=== PATIENT | male | born 1960 | race African-American/Black ===

== ENCOUNTER 2017-04-18 06:14 | Emergency (ER) | payer OTHER ==
[~2017-04-18] VITALS: Ht 170.2 cm; Wt 72.6 kg
[2017-04-18 06:23] VITALS: BP 166/80
[2017-04-18] MEDS ORDERED: HYDR-971 PO (06:45)
--- NOTE | 2017-04-18 06:46 | PHYS DOC ---
Past Medical History Past Medical History: GERD, Hypertension Past Surgical History: No Surgical History Alcohol Use: None Drug Use: None Adult General Chief Complaint Chief Complaint: LOWER EXT PAIN [facility] HPI Patient is a 56 year old male presenting to the emergency department for evaluation of left hip, lumbar back, and leg pain that has been going on for months however it is worse over the past several days. He says it feels like a toothache that it is intense pounding. He says he doesn't feel any pain at rest however whenever he twists his torso or moves he feels the pain more intense. 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 He denies any weakness numbness tingling dysuria hematuria bowel or bladder incontinence. Patient says that he has seen his primary care for this and was taking anti-inflammatories with some relief. He has had no physical therapy or advanced imaging. Review of Systems Review of Systems Constitutional: Denies fever or chills [] Cardiovascular: No additional information not addressed in HPI [] GI: Denies abdominal pain, nausea, vomiting, bloody stools or diarrhea [] : Denies dysuria or hematuria [] Musculoskeletal: + back pain and L hip joint pain [] Integument: Denies rash or skin lesions [] Neurologic: Denies headache, focal weakness or sensory changes [] Current Medications Current Medications Current Medications Medications (Trade) Dose Ordered Sig/[facility] Start Time Stop Time Status Last Admin Dose Admin Ketorolac Tromethamine (Toradol Im) 60 mg 1X ONCE 04/18/17 07:00 04/18/17 07:01 Allergies Allergies Allergies Coded Allergies Type Severity Reaction Last Updated Verified aspirin Allergy Mild raises blood pressure. 01/28/14 Yes Physical Exam Physical Exam Constitutional: Well developed, well nourished, no acute distress, non-toxic appearance. [] Cardiovascular:Heart rate regular rhythm, no murmur [] Lungs & Thorax: Bilateral breath sounds clear to auscultation [] Abdomen: Bowel sounds normal, soft, no tenderness, no masses, no pulsatile masses. [] Back: + L lower lumbar tenderness to palpation. No midline ttp. Extremities: Left lateral hip tenderness to palpation and pain seems to continue along his left upper leg in the L1 distribution area. Neurologic: Alert and oriented X 3, normal motor function, normal sensory function, no focal deficits noted. Up walking in the emergency department with normal gait. Current Patient Data Vital Signs Vital Signs Date Time Temp Pulse Resp B/P (MAP) Pulse Ox O2 Delivery O2 Flow Rate FiO2 04/18/17 06:23 97.8 62 14 97 Room Air 97.8 EKG EKG [] Radiology/Procedures Radiology/Procedures Lumbar x-ray shows no acute fracture dislocation soft tissue abnormality Left hip x-ray shows no fracture dislocation or soft tissue abnormality Course & Med Decision Making Course & Med Decision Making X-rays show no acute pathology so he will be treated with rice NSAIDs [place] for breakthrough pain and PCP follow-up for physical therapy and further evaluation and treatment. Patient aware and agreeable with plan for discharge and verbalized understanding of the need for short-term follow-up and strict ER return precautions discussed including worsening pain weakness or incontinence or other general concerns. Dragon Disclaimer Dragon Disclaimer This electronic medical record was generated, in whole or in part, using a voice recognition dictation system. Departure Departure Impression: Primary Impression: Lumbar pain Additional Impression: Lumbar radiculopathy, acute Disposition: 01 HOME, SELF-CARE Condition: GOOD Referrals: MIKKI LAWS MD (PCP) Patient Instructions: Lumbosacral Radiculopathy Additional Instructions: TAKE 400MG OF IBUPROFEN EVERY 6 HOURS AND THE NORCO FOR BREAKTHROUGH PAIN. DO NOT TAKE MORE THAN 3250MG OF TYLENOL IN A 24 HOUR PERIOD. REST YOU LEG PUT ICE ON IT IT, ELEVATE IT. FOLLOW WITH YOUR PRIMARY CARE PROVIDER LATER THIS WEEK AND COME BACK TO THE ED SOONER WITH ANY NEW OR WORSENING SYMPTOMS. THANK YOU! Scripts Hydrocodone/Apap 5-325 (NORCO 5-325 TABLET) 1 Each Tablet 1 TAB PO PRN Q6HRS Y for PAIN, #14 TAB 0 Refills Prov: JULISA SINGLETARY DO 04/18/17 Problem Qualifiers Primary Impression: Lumbar pain Chronicity: acute Back pain laterality: left Sciatica presence: unspecified whether sciatica present Qualified Codes: M54.5 - Low back pain JULISA SINGLETARY DO April 18, 2017 06:46
[2017-04-18] MEDS ORDERED: KETOROLAC TROMETHAMINE 60 MG/2 ML INJ. IM ONE (07:00)
--- NOTE | 2017-04-18 07:38 | RAD ---
EXAM: Pelvis and left hip, 3 views. HISTORY: Pain. COMPARISON: None. FINDINGS: A frontal view of the pelvis and frontal and frog-leg views of the left hip are obtained. There is no fracture, dislocation or subluxation. IMPRESSION: No acute osseous finding.
--- NOTE | 2017-04-18 07:38 | RAD ---
EXAM: Lumbar spine, 3 views. HISTORY: Pain. COMPARISON: None. FINDINGS: Frontal, lateral and coned sacral views of the lumbar spine are obtained. There is minimal retrolisthesis of L5 on S1. There is disc space narrowing at this level. There is endplate remodeling anteriorly redundantly at L1-L2 and L3-L4. There is no fracture. IMPRESSION: 1. Mild multilevel degenerative change. 2. No acute osseous finding.
== END 2017-04-18 07:03 | disposition home or self-care (01) ==
LOC: ER 06:14
DX: M54.16 Radiculopathy, lumbar region (principal); M25.552 Pain in left hip; K21.9 Gastro-esophageal reflux disease without esophagitis; I10 Essential (primary) hypertension; Z88.6 Allergy status to analgesic agent
CPT/HCPCS: 72100; 73502; 99284

== ENCOUNTER 2017-07-17 05:11 | Emergency (ER) | payer OTHER ==
[~2017-07-17] VITALS: Ht 170.2 cm; Wt 71.2 kg
[2017-07-17 05:11] VITALS: BP 176/89
[~2017-07-17 05:11] MED LIST: HYDR-971 PO
[2017-07-17] MEDS ORDERED: IBUPROFEN 800 MG TABLET. PO ONE (05:45)
[2017-07-17] MEDS ORDERED: HYDR-971 PO (05:46)
--- NOTE | 2017-07-17 05:46 | PHYS DOC ---
Past Medical History Past Medical History: GERD, Hypertension Past Surgical History: No Surgical History Alcohol Use: None Drug Use: None Adult General Chief Complaint Chief Complaint: MULTIPLE COMPLAINTS [facility] HPI Patient is a 56 year old male presenting to the emergency department for evaluation of a primary complaint of left leg pain and intermittent tingling has been going on for 2 months. He says that he was getting physical therapy for this but that he is not receiving it anymore and now his left leg is starting to hurt him again. Patient says that he is not taking anything for pain as he was taking hydrocodone but he has ran out. Patient denies any weakness or numbness rather he says he feels a sharp pain on the front of his left leg that radiates from his low back and that every once a while he gets tingling on the front of his leg as well. His any bowel or bladder incontinence and no saddle anesthesia and he is walking with a normal gait. He thinks that he is having a stroke but he denies any difficulty ambulating speaking or unilateral weakness or numbness. Again this has been going on for 2 months. Review of Systems Review of Systems Constitutional: Denies fever or chills [] Eyes: Denies change in visual acuity, redness, or eye pain [] Cardiovascular: No additional information not addressed in HPI [] GI: Denies abdominal pain, nausea, vomiting, bloody stools or diarrhea [] Musculoskeletal: + back pain. No joint pain [] Neurologic: Denies headache, focal weakness. + tingling sensory changes [] Current Medications Current Medications Current Medications Medications (Trade) Dose Ordered Sig/[facility] Start Time Stop Time Status Last Admin Dose Admin Ibuprofen (Motrin) 800 mg 1X ONCE 07/17/17 05:45 07/17/17 05:46 Allergies Allergies Allergies Coded Allergies Type Severity Reaction Last Updated Verified aspirin Allergy Mild raises blood pressure. 01/28/14 Yes Physical Exam Physical Exam Constitutional: Well developed, well nourished, no acute distress, non-toxic appearance. [] Cardiovascular:Heart rate regular rhythm, no murmur [] Lungs & Thorax: Bilateral breath sounds clear to auscultation [] Abdomen: Bowel sounds normal, soft, no tenderness, no masses, no pulsatile masses. [] Skin: Warm, dry, no erythema, no rash. [] Back: No tenderness, no CVA tenderness. [] Extremities: No tenderness, no cyanosis, no clubbing, ROM intact, no edema. [] Neurologic: Alert and oriented X 3, normal motor function, normal sensory function, no focal deficits noted. Cranial nerves II through XII intact and he has normal gait with 5 out of 5 strength in all extremities with normal finger to nose and heel to dill and he can stand on one leg with no difficulty. Current Patient Data Vital Signs Vital Signs Date Time Temp Pulse Resp B/P (MAP) Pulse Ox O2 Delivery O2 Flow Rate FiO2 07/17/17 05:11 97.8 98 14 176/89 (118) 98 Room Air 97.8 EKG EKG [] Radiology/Procedures Radiology/Procedures [] Course & Med Decision Making Course & Med Decision Making Patient with symptoms most consistent with a lumbar radiculopathy. I do not suspect stroke. I told him if he is having unilateral weakness numbness or other specific neurologic symptoms is possible but given this is just low back pain radiating to the front of his leg this is likely a lumbar radiculopathy. Especially since this has been going on for 2 months this is more of a chronic complaint they could be followed up as an outpatient. If he has any new complaints that we could assess him for stroke but for now we'll treat him with NSAIDs and [place] for breakthrough pain. Patient aware and agreeable with plan for discharge and verbalized understanding of the need for short-term PCP follow -up in the strict ER return precautions discussed worsening pain weakness or other general concerns. Dragon Disclaimer Dragon Disclaimer This electronic medical record was generated, in whole or in part, using a voice recognition dictation system. Departure Departure Impression: Primary Impression: Lumbar radiculopathy, acute Disposition: 01 HOME, SELF-CARE Condition: GOOD Referrals: MIKKI LAWS MD (PCP) Patient Instructions: Lumbosacral Radiculopathy Additional Instructions: TAKE 400MG OF IBUPROFEN EVERY 6 HOURS AND THE NORCO FOR BREAKTHROUGH PAIN. FOLLOW WITH YOUR PCP LATER NEXT WEEK TO ENSURE IMPROVEMENT. THANK YOU! Scripts Hydrocodone/Apap 5-325 (NORCO 5-325 TABLET) 1 Each Tablet 1 TAB PO PRN Q6HRS Y for PAIN, #14 TAB 0 Refills Prov: JULISA SINGLETARY DO 07/17/17 JULISA SINGLETARY DO Jul 17, 2017 05:46
== END 2017-07-17 06:02 | disposition home or self-care (01) ==
LOC: ER 05:11
DX: M54.16 Radiculopathy, lumbar region (principal); K21.9 Gastro-esophageal reflux disease without esophagitis; I10 Essential (primary) hypertension; Z88.6 Allergy status to analgesic agent
CPT/HCPCS: 99283

== ENCOUNTER 2017-12-21 23:31 | Emergency (ER) | payer OTHER | END 2017-12-22 00:30 | disposition home or self-care (01) | LOC: ER 23:31 | DX: M79.604 Pain in right leg (principal); G89.29 Other chronic pain; Z76.0 Encounter for issue of repeat prescription; I10 Essential (primary) hypertension; K21.9 Gastro-esophageal reflux disease without esophagitis; Z88.6 Allergy status to analgesic agent | CPT/HCPCS: 99283 ==

== ENCOUNTER → 2018-03-21 | Outpatient (CLI) | payer OTHER ==
[~2018-03-21] MED LIST changes: +CONTRAST GIVEN MC; -HYDR-971 PO
[2018-03-21] MEDS: IOHEXOL 300 MG/ML 100ML VIAL. IV (08:19)
== END | disposition home or self-care (01) ==
LOC: CT 07:26
DX: I70.223 Atherosclerosis of native arteries of extremities with rest pain, bilateral legs (principal)
CPT/HCPCS: 75635; Q9967

== ENCOUNTER 2018-11-19 18:34 | Emergency (ER) | payer OTHER ==
[~2018-11-19] VITALS: Ht 170.2 cm; Wt 69.4 kg
[~2018-11-19 18:34] MED LIST changes: -CONTRAST GIVEN MC; +CYCL10TA2 PO; +HYDR-3164 PO; +METO-269 PO; +NAPR-683 PO
[2018-11-19 18:48] VITALS: BP 198/94
[2018-11-19] MEDS ORDERED: AMOX1TAB61 PO (19:19)
[2018-11-19] MEDS ORDERED: FLUT9.9S NS (19:19)
--- NOTE | 2018-11-19 19:19 | PHYS DOC ---
Past Medical History Past Medical History: GERD, Hypertension Additional Past Medical Histor: POOR CIRCULATION Past Surgical History: No Surgical History Alcohol Use: None Drug Use: None Adult General Chief Complaint Chief Complaint: Congestion HPI HPI Patient is a 57 year old male with history of hypertension, acid reflex, who presents today complaining of nasal congestion for 2 weeks. Patient states symptoms began with a cough but the cough has cleared out, he states he is stuck with nasal congestion, he states he has been using [id number] Coricidin BP with no relief. Denies any fever. Denies any history of smoking. Review of Systems Review of Systems Constitutional: Denies fever or chills [] Eyes: Denies change in visual acuity, redness, or eye pain [] HENT: Reports nasal congestion. Denies sore throat [] Respiratory: Reports cough, denies shortness of breath [] Cardiovascular: No additional information not addressed in HPI [] GI: Denies abdominal pain, nausea, vomiting, bloody stools or diarrhea [] : Denies dysuria or hematuria [] Musculoskeletal: Denies back pain or joint pain [] Integument: Denies rash or skin lesions [] Neurologic: Denies headache, focal weakness or sensory changes [] All other systems were reviewed and found to be within normal limits, except as documented in this note. Allergies Allergies Allergies Coded Allergies Type Severity Reaction Last Updated Verified aspirin Adverse Reaction Mild raises blood pressure. 03/21/18 Yes Physical Exam Physical Exam Constitutional: Well developed, well nourished, no acute distress, non-toxic appearance. [] HENT: Normocephalic, atraumatic, bilateral external ears normal, oropharynx moist, no oral exudates, patient sounds congested nasally, bilateral nasal turbinates are boggy. Mild maxillary sinus tenderness bilaterally Eyes: PERRLA, EOMI, conjunctiva normal, no discharge. [] Neck: Normal range of motion, no tenderness, supple, no stridor. [] Cardiovascular:Heart rate regular rhythm, no murmur [] Lungs & Thorax: Bilateral breath sounds clear to auscultation [] Abdomen: Bowel sounds normal, soft, no tenderness, no masses, no pulsatile masses. [] Skin: Warm, dry, no erythema, no rash. [] Back: No tenderness, no CVA tenderness. [] Extremities: No tenderness, no cyanosis, no clubbing, ROM intact, no edema. [] Neurologic: Alert and oriented X 3, normal motor function, normal sensory function, no focal deficits noted. [] Psychologic: Affect normal, judgement normal, mood normal. [] Current Patient Data Vital Signs Vital Signs Date Time Temp Pulse Resp B/P (MAP) Pulse Ox O2 Delivery O2 Flow Rate FiO2 11/19/18 18:48 98.0 65 18 198/94 (128) 97 Room Air 98.0 EKG EKG [] Radiology/Procedures Radiology/Procedures [] Course & Med Decision Making Course & Med Decision Making Pertinent Labs and Imaging studies reviewed. (See chart for details) This is a 57-year-old male patient presented to the ED today with acute sinusitis. Will be discharged with Augmentin and Flonase. Follow-up with his own PCP in the next 1-2 weeks. Blood pressure was in the 190s over 90s, patient has history of hypertension, due for his evening BP medications, encouraged to make sure he takes the medications. Patient denies any headache or chest pain. He has good follow-up. Dragon Disclaimer Dragon Disclaimer This electronic medical record was generated, in whole or in part, using a voice recognition dictation system. Departure Departure Impression: Primary Impression: Acute sinusitis Additional Impression: Hypertension Disposition: 01 HOME, SELF-CARE Condition: STABLE Referrals: Raman COOPER MD (PCP) Follow-up in 1-2 weeks Patient Instructions: Hypertension, Sinusitis Additional Instructions: You were evaluated for acute sinusitis, use the prescribed medications as ordered. Ensure you are taking your blood pressure medications as ordered by your doctor. Come back to the ED at any point symptoms worsen. Scripts Fluticasone Propionate (Flonase Allergy Relief) 9.9 Ml [place].susp 2 SPRAYS NS DAILY, #1 BOTTLE Prov: YEVGENIY ROMANO APRN 11/19/18 Amoxicillin/Potassium Clav (AUGMENTIN 875-125 TABLET) 1 Each Tablet 1 TAB PO BID, #20 TAB Prov: YEVGENIY ROMANO APRN 11/19/18 Problem Qualifiers Primary Impression: Acute sinusitis Sinusitis location: maxillary Recurrence: non-recurrent Qualified Codes: J01.00 - Acute maxillary sinusitis, unspecified Additional Impression: Hypertension Hypertension type: unspecified Qualified Codes: I10 - Essential (primary) hypertension YEVGENIY ROMANO APRN Nov 19, 2018 19:19
== END 2018-11-19 19:26 | disposition home or self-care (01) ==
LOC: ER 18:34
DX: J01.00 Acute maxillary sinusitis, unspecified (principal); I10 Essential (primary) hypertension; R51 Headache; K21.9 Gastro-esophageal reflux disease without esophagitis; Z88.6 Allergy status to analgesic agent
CPT/HCPCS: 99283

== ENCOUNTER 2019-03-15 13:08 | Emergency (ER) | payer OTHER ==
[~2019-03-15] VITALS: Ht 170.2 cm; Wt 68.9 kg
[~2019-03-15 13:08] MED LIST changes: +AMOX1TAB61 PO; +FLUT9.9S NS
[2019-03-15 13:35] VITALS: BP 115/69
--- NOTE | 2019-03-15 14:03 | RAD ---
Indications: Patient states his right hand and right wrist got caught in a roll up door at work. Right hand and right wrist pain. Three-view right hand study: No acute fracture or dislocation or lytic process is evident. An old healed fracture of the distal aspect of the fifth proximal phalanx is seen. Three-view right wrist study: There is a nondisplaced nonangulated comminuted fracture of the distal shaft of the right radius. No lytic process is evident. Scaphoid bone is intact. Alignment is normal. IMPRESSION: Posttraumatic nondisplaced comminuted fracture of the distal shaft of the right radius. Electronically signed by: Torey Avery MD (03/15/2019 2:01 PM) [id number]
[2019-03-15] MEDS ORDERED: ACETAMINOPHEN 325 MG TABLET. PO ONE (14:15)
--- NOTE | 2019-03-15 14:40 | RAD ---
3 view study of the right elbow Clinical indications: Right elbow pain after trauma. FINDINGS: No joint effusion is seen. No acute fracture or dislocation or lytic process is evident. IMPRESSION: No acute osseous abnormality. Electronically signed by: Torey Avery MD (03/15/2019 2:37 PM) [place] [id number]
--- NOTE | 2019-03-15 15:51 | PHYS DOC ---
Past Medical History Past Medical History: GERD, Hypertension Additional Past Medical Histor: POOR CIRCULATION Past Surgical History: No Surgical History Alcohol Use: None Drug Use: None Adult General Chief Complaint Chief Complaint: WRIST PAIN HPI HPI 58-year-old male presents to ER via POV with complaints of right upper extremity injury. He reports he was at work and someone had opened the freezer door he had a mild of which caused his right arm to be jerked upwards. Patient states he has right wrist and hand pain. He denies any [id number] medications prior to arrival to ER. He reports incident occurred earlier this morning and and he has been using his right upper extremity however does have pain with movements. Patient denies any other injury. Pt reports he is right hand dominant. Review of Systems Review of Systems Respiratory: Denies cough or shortness of breath [] Cardiovascular: Denies CP GI: Denies nausea, vomiting Musculoskeletal: Denies back/neck pain. Reports rt wrist/hand pain Integument: Denies bruising/swelling/wounds Neurologic: Denies focal weakness or sensory changes. Denies numbness/tingling All other systems were reviewed and found to be within normal limits, except as documented in this note. Current Medications Current Medications Current Medications Medications (Trade) Dose Ordered Sig/[facility] Start Time Stop Time Status Last Admin Dose Admin Acetaminophen (Tylenol) 650 mg 1X ONCE 03/15/19 14:15 03/15/19 14:18 DC 03/15/19 14:19 650 MG Allergies Allergies Allergies Coded Allergies Type Severity Reaction Last Updated Verified aspirin Adverse Reaction Mild raises blood pressure. 03/21/18 Yes Physical Exam Physical Exam Constitutional: Well developed, well nourished, no acute distress, non-toxic ap pearance. [] HENT: Normocephalic, atraumatic, oropharynx moist, nose normal. [] Eyes: Pupils equal, conjunctiva normal, no discharge. [] Neck: Normal range of motion, no tenderness, supple, no stridor. [] Cardiovascular:Heart rate regular rhythm, no murmur [] Lungs & Thorax: Bilateral breath sounds clear to auscultation- resp. equal/nonlabored Abdomen: Bowel sounds normal, soft, no tenderness Skin: Warm, dry Back: No tenderness, full ROM Extremities: No cyanosis, no clubbing, ROM intact, no edema. 2+ bilat. radial. Rt shoulder nontender. ROM intact. Rt posterior elbow tender on palp. no swelling/ecchymosis/wounds. No palp. deformity. ROM intact. Rt anterior mid shaft forearm into rt wrist tender on palp. no ecchymosis/swelling/deformity. Tender on palp. rt anterior wrist/dorsal surface of hand- no deformity/swelling/ecchymosis. 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 Cap refill brisk rt hand. Neurologic: Alert and oriented X 3, normal motor function, normal sensory function, no focal deficits noted. [] Psychologic: Affect normal, judgement normal, mood normal. [] Current Patient Data Vital Signs Vital Signs Date Time Temp Pulse Resp B/P (MAP) Pulse Ox O2 Delivery O2 Flow Rate FiO2 03/15/19 13:35 98.2 56 18 115/69 (84) 97 Room Air 98.2 EKG EKG [] Radiology/Procedures Radiology/Procedures PROCEDURE: HAND RIGHT 3V Indications: Patient states his right hand and right wrist got caught in a roll up door at work. Right hand and right wrist pain. Three-view right hand study: No acute fracture or dislocation or lytic process is evident. An old healed fracture of the distal aspect of the fifth proximal phalanx is seen. Three-view right wrist study: There is a nondisplaced nonangulated comminuted fracture of the distal shaft of the right radius. No lytic process is evident. Scaphoid bone is intact. Alignment is normal. IMPRESSION: Posttraumatic nondisplaced comminuted fracture of the distal shaft of the right radius. Electronically signed by: Taylor Avery MD (03/15/2019 2:01 PM) [place] [id number] DICTATED and SIGNED BY: TAYLOR AVERY MD DATE: 03/15/19 1823 PROCEDURE: ELBOW RIGHT 3V 3 view study of the right elbow Clinical indications: Right elbow pain after trauma. FINDINGS: No joint effusion is seen. No acute fracture or dislocation or lytic process is evident. IMPRESSION: No acute osseous abnormality. Electronically signed by: Taylor Avery MD (03/15/2019 2:37 PM) [place] [id number] DICTATED and SIGNED BY: TAYLOR AVERY MD DATE: 03/15/19 2631 Course & Med Decision Making Course & Med Decision Making Pertinent Imaging studies reviewed. (See chart for details) Pt was evaluated in the ER after a right upper extremity injury at work today. Pt had xrays obtained of rt hand/wrist and elbow- report of distal nondisplaced comminuted radius fx on xrays were discussed with pt. Pt was provided with dose of tylenol in ER as he preferred no Ibuprofen. Pt remained PMS in rt upper extremity. Pt will be placed in rt arm sugar tong splint with sling application- which was discussed with pt. Pt denied any other injury. Education provided on follow-up with orthopedics for reevaluation and further care. With patient being injured at work advised on discussion with his employer as to if he should follow-up with work comp orthopedic doctor. Will provide orthopedic referral information on discharge paperwork also. Pt advised on use of Tylenol and/or ibuprofen. Prescription for pain medication was offered however patient is not wanting anything stronger than Tylenol. Provided on signs and symptoms to return to ER for an discharge paperwork was discussed. Following splint application and patient remained PMS intact in right upper extremity and was in no visible distress at time of discharge. Dragon Disclaimer Dragon Disclaimer This electronic medical record was generated, in whole or in part, using a voice recognition dictation system. Departure Departure Impression: Primary Impression: Distal radius fracture, right Disposition: 01 HOME, SELF-CARE Condition: STABLE Referrals: Raman COOPER MD (PCP) KELLI PETERSON MD Patient Instructions: Arm Sling Use, [id number], Radial Fracture Additional Instructions: You will need follow-up with orthopedic doctor as soon as possible for reevaluation and further care. Talk with your employer to see if you need evaluated by a workman comp physician- if not and orthopedic doctor referral information is being provided on your discharge paperwork for option for further care. Wear sling for support of the splint. Tylenol and/or ibuprofen as needed for pain relief as directed on container. JACKSON NEUMANN APRN Mar 15, 2019 15:51
== END 2019-03-15 15:55 | disposition home or self-care (01) ==
LOC: ER 13:08
DX: S52.591A Other fractures of lower end of right radius, initial encounter for closed fracture (principal); K21.9 Gastro-esophageal reflux disease without esophagitis; I10 Essential (primary) hypertension; Z88.6 Allergy status to analgesic agent; W22.8XXA Striking against or struck by other objects, initial encounter; Y93.89 Activity, other specified; Y92.89 Other specified places as the place of occurrence of the external cause; Y99.0 Civilian activity done for income or pay
CPT/HCPCS: 29125; 73080; 73110; 73130; 99284-25

== ENCOUNTER → 2019-12-27 | Day surgery (SDC) | payer BC ==
[~2019-12-27] MED LIST changes: +AMLO10TA8 PO; +CILO100T PO; +HYDROmorphone 2 MG/ML VIAL IV PRN; +IV RINGERS,LACTATED 1000ML 1,000 ML IV SCH; +LIDOCAINE 1% PF 2 ML VIAL. ID PRN; +LIDOCAINE 2% PF 5 ML VIAL. ONE; +LOSA100T14 PO; +MORPHINE SULFATE 2 MG/ML VIAL. IV PRN; +ONDANSETRON PF 4 MG/2 ML VIAL. IV PRN; +PROCHLORPERAZINE 10 MG/2 ML VIAL. IV PRN; +PROPOFOL 40 ML IV ONE; +fentaNYL PF VIAL 100 MCG/2 ML VIAL IV PRN
[2019-12-27 07:50] VITALS: BP 115/68
== END | disposition home or self-care (01) ==
LOC: ENDOS 06:19
PROVIDERS: ATTEND Internal Medicine Gastroenterology
DX: Z12.11 Encounter for screening for malignant neoplasm of colon (principal); K64.0 First degree hemorrhoids; K63.89 Other specified diseases of intestine; K22.2 Esophageal obstruction; I10 Essential (primary) hypertension; Z82.49 Family history of ischemic heart disease and other diseases of the circulatory system; Z80.0 Family history of malignant neoplasm of digestive organs; Z88.6 Allergy status to analgesic agent; Z79.899 Other long term (current) drug therapy
CPT/HCPCS: 43450; 45378; J2001; J2704

== ENCOUNTER 2020-01-22 07:59 | Inpatient (IN) | payer BC ==
[~2020-01-22] VITALS: Ht 170.2 cm; Wt 66.8 kg
[2020-01-22] VITALS (8 sets, daily range): BP systolic 137–164; BP diastolic 73–90
[~2020-01-22 07:59] MED LIST changes: -HYDROmorphone 2 MG/ML VIAL IV PRN; -IV RINGERS,LACTATED 1000ML 1,000 ML IV SCH; -LIDOCAINE 1% PF 2 ML VIAL. ID PRN; -LIDOCAINE 2% PF 5 ML VIAL. ONE; -MORPHINE SULFATE 2 MG/ML VIAL. IV PRN; -ONDANSETRON PF 4 MG/2 ML VIAL. IV PRN; -PROCHLORPERAZINE 10 MG/2 ML VIAL. IV PRN; -PROPOFOL 40 ML IV ONE; -fentaNYL PF VIAL 100 MCG/2 ML VIAL IV PRN
[2020-01-22] MEDS ORDERED: IV NORMAL SALINE 1000ML BAG 1,000 ML IV SCH (08:22)
[2020-01-22] MEDS ORDERED: ASPIRIN CHEWABLE 81 MG TABLET. PO ONE (08:30)
--- NOTE | 2020-01-22 08:35 | PHYS DOC ---
Past Medical History Past Medical History: GERD, Hypertension Additional Past Medical Histor: POOR CIRCULATION Past Surgical History: No Surgical History Smoking Status: Never Smoker Alcohol Use: None Drug Use: None Adult General Chief Complaint Chief Complaint: SYNCOPE HPI HPI Patient is a 59-year-old male who presents to the emergency department for evaluation. He states he awakened this morning, and felt lightheaded, and then had a syncopal episode while using the bathroom. He denies any pain, including any chest pain. He has not had any nausea, vomiting, or diarrhea. He denies any injuries during his syncopal episode, denies any headache, neck pain, abdominal pain, or back pain. He denies any extremity pain or any injuries. There are no alleviating or exacerbating factors to his symptoms Review of Systems Review of Systems Constitutional: Denies fever or chills [] Eyes: Denies change in visual acuity, redness, or eye pain [] HENT: Denies nasal congestion or sore throat [] Respiratory: Denies cough or shortness of breath [] Cardiovascular:The patient denies any shortness of breath, chest pain, palpitations, or orthopnea [] GI: Denies abdominal pain, nausea, vomiting, bloody stools or diarrhea [] : Denies dysuria or hematuria [] Musculoskeletal: Denies back pain or joint pain [] Integument: Denies rash or skin lesions [] Neurologic: Denies headache, focal weakness or sensory changes [] Endocrine: Denies polyuria or polydipsia [] All other systems were reviewed and found to be within normal limits, except as documented in this note. Current Medications Current Medications Current Medications Medications (Trade) Dose Ordered Sig/Dayne Start Time Stop Time Status Last Admin Dose Admin Aspirin (Children'S Aspirin) 324 mg 1X ONCE 01/22/20 08:30 01/22/20 08:36 DC 01/22/20 08:43 324 MG Sodium Chloride 1,000 ml @ 1,000 mls/hr Q1H 01/22/20 08:22 01/22/20 09:21 DC 01/22/20 08:44 1,000 MLS/HR Allergies Allergies Allergies Coded Allergies Type Severity Reaction Last Updated Verified aspirin Adverse Reaction Mild raises blood pressure. 12/27/19 Yes Physical Exam Physical Exam PHYSICAL EXAM: CONSTITUTIONAL: Well developed, well nourished HEAD: normocephalic, atraumatic EENT: PERRL, EOMI. Conjunctivae normal color, sclerae non-icteric; moist mucous membranes. NECK: Supple, non-tender; no meningismus. LUNGS: Lungs CTA, breathing even and unlabored. Normal air movement. HEART: Regular rate and rhythm, no murmur CHEST: No deformity; non-tender ABDOMEN: The abdomen is soft, and non-tender, no masses or bruits. EXTREM: Normal ROM; no deformity, no calf tenderness. Normal pulses palpable in all extremities. There is no pedal edema. SKIN: No rash; no diaphoresis NEURO: Alert; normal speech and cognition; CN's grossly intact; strength grossly intact without focal deficit. BACK: No CVA TTP. Current Patient Data Vital Signs Vital Signs Date Time Temp Pulse Resp B/P (MAP) Pulse Ox O2 Delivery O2 Flow Rate FiO2 01/22/20 08:00 97.9 57 18 159/72 (101) 100 Room Air 97.9 Lab Values Laboratory Tests Test 01/22/20 08:38 01/22/20 08:39 White Blood Count 5.8 x10^3/uL (4.0-11.0) Red Blood Count 4.54 x10^6/uL (4.30-5.70) Hemoglobin 13.7 g/dL (13.0-17.5) Hematocrit 41.3 % (39.0-53.0) Mean Corpuscular Volume 91 fL (79-100) Mean Corpuscular Hemoglobin 30 pg (25-35) Mean Corpuscular Hemoglobin Concent 33 g/dL (31-37) Red Cell Distribution Width 13.3 % (11.5-14.5) Platelet Count 273 x10^3/uL (140-400) Neutrophils (%) (Auto) 60 % (31-73) Lymphocytes (%) (Auto) 29 % (24-48) Monocytes (%) (Auto) 9 % (0-9) Eosinophils (%) (Auto) 2 % (0-3) Basophils (%) (Auto) 1 % (0-3) Neutrophils # (Auto) 3.5 x10^3/uL (1.8-7.7) Lymphocytes # (Auto) 1.7 x10^3/uL (1.0-4.8) Monocytes # (Auto) 0.5 x10^3/uL (0.0-1.1) Eosinophils # (Auto) 0.1 x10^3/uL (0.0-0.7) Basophils # (Auto) 0.1 x10^3/uL (0.0-0.2) Sodium Level 141 mmol/L (136-145) Potassium Level 3.9 mmol/L (3.5-5.1) Chloride Level 104 mmol/L (98-107) Carbon Dioxide Level 25 mmol/L (21-32) Anion Gap 12 (6-14) Blood Urea Nitrogen 11 mg/dL (8-26) Creatinine 1.0 mg/dL (0.7-1.3) Estimated GFR (Cockcroft-Gault) 91.9 BUN/Creatinine Ratio 11 (6-20) Glucose Level 145 mg/dL (70-99) H Calcium Level 9.7 mg/dL (8.5-10.1) Magnesium Level 2.3 mg/dL (1.8-2.4) Total Bilirubin 0.4 mg/dL (0.2-1.0) Aspartate Amino Transferase (AST) 21 U/L (15-37) Alanine Aminotransferase (ALT) 17 U/L (16-63) Alkaline Phosphatase 76 U/L (46-116) Troponin I Quantitative < 0.017 ng/mL (0.000-0.055) AU-Wmn-X-Type Natriuretic Peptide 27 pg/mL (0-124) Total Protein 7.9 g/dL (6.4-8.2) Albumin 3.8 g/dL (3.4-5.0) Albumin/Globulin Ratio 0.9 (1.0-1.7) L Thyroid Stimulating Hormone (TSH) 1.152 uIU/mL (0.358-3.74) POC Troponin I 0.01 ng/ml (<0.08) Laboratory Tests 01/22/20 08:38 Laboratory Tests 01/22/20 08:38 EKG EKG []Normal sinus rhythm at a rate of 56 beats for minute, left axis deviation, normal intervals, there are nonspecific ST/T changes, present in leads V1 through V3, as well as one in aVL. EKG was reviewed with cardiology on-call, who recommended repeating EKG, check a troponin, and close monitoring Repeat EKG, done at 8:35 AM, shows normal sinus rhythm at a rate of 64 bpm, normal axis, normal intervals, nonspecific ST/T changes, not significantly changed compared to the patient's EKG from earlier this morning. Radiology/Procedures Radiology/Procedures PROCEDURE: PORTABLE CHEST 1V PORTABLE CHEST 1V 01/22/2020 9:08 AM INDICATION: Syncope COMPARISON: None available TECHNIQUE: Portable frontal view of the chest is provided. FINDINGS: The cardiomediastinal silhouette is within normal limits. Lungs are clear. There are no significant pleural effusions. There is no pulmonary vascular congestion. No pneumothorax. IMPRESSION: There is no acute cardiopulmonary process.[] Course & Med Decision Making Course & Med Decision Making Pertinent Labs and Imaging studies reviewed. (See chart for details) []9:35 AM:The patient's condition remains stable. I spoke with the hospitalist, who accepted the patient to the hospital for further evaluation and treatment. Dragon Disclaimer Dragon Disclaimer This electronic medical record was generated, in whole or in part, using a voice recognition dictation system. Departure Departure Impression: Primary Impression: Syncope Additional Impression: Abnormal EKG Disposition: ADMITTED INPATIENT Admitting Physician: WILLIAM Condition: STABLE Referrals: Raman COOPER MD (PCP) Problem Qualifiers JULISA GUERRERO MD Jan 22, 2020 08:35
[2020-01-22 08:52] LABS: BASO # 0.1 x10^3/uL (0.0-0.2); BASO % 1 % (0-3); EOS # 0.1 x10^3/uL (0.0-0.7); EOS % 2 % (0-3); HEMATOCRIT 41.3 % (39.0-53.0); HEMOGLOBIN 13.7 g/dL (13.0-17.5); LYMPH # 1.7 x10^3/uL (1.0-4.8); LYMPH % 29 % (24-48); MEAN CORPUSCULAR HEMOGLOBIN 30 pg (25-35); MEAN CORPUSCULAR HGB CONC 33 g/dL (31-37); MEAN CORPUSCULAR VOLUME 91 fL (79-100); MONO # 0.5 x10^3/uL (0.0-1.1); MONO % 9 % (0-9); NEUT # 3.5 x10^3/uL (1.8-7.7); NEUT % 60 % (31-73); PLATELET COUNT 273 x10^3/uL (140-400); RED BLOOD COUNT 4.54 x10^6/uL (4.30-5.70); RED CELL DISTRIBUTION WIDTH 13.3 % (11.5-14.5); WHITE BLOOD COUNT 5.8 x10^3/uL (4.0-11.0)
[2020-01-22 09:01] LABS: CALCIUM 9.7 mg/dL (8.5-10.1); GFR 91.9; POTASSIUM 3.9 mmol/L (3.5-5.1)
[2020-01-22 09:06] LABS: ALBUMIN 3.8 g/dL (3.4-5.0); ALBUMIN/GLOBULIN RATIO 0.9 (1.0-1.7); MAGNESIUM 2.3 mg/dL (1.8-2.4); TOTAL BILIRUBIN 0.4 mg/dL (0.2-1.0); TOTAL PROTEIN 7.9 g/dL (6.4-8.2)
--- NOTE | 2020-01-22 09:25 | PDOC1 ---
History and Physical Date of Admission Date of Admission DATE: 01/22/20 TIME: 09:24 Identification/Chief Complaint Chief Complaint SEEN IN ER FOR SYNCOPE THIS AM AT HOME 59-year-old male who presents to the emergency department for evaluation. He states he awakened this morning, and felt lightheaded, and then had a syncopal episode while using the bathroom. He denies any pain, including any chest pain. He has not had any nausea, vomiting, or diarrhea. denies any injuries during his syncopal episode, denies any headache, neck pain, abdominal pain, or back pain. He denies any extremity pain or any injuries. Past Medical History Past Medical History Past Medical History Past Medical History Past Medical History: GERD, Hypertension Additional Past Medical Histor: POOR CIRCULATION Past Surgical History: No Surgical History Smoking Status: Never Smoker Alcohol Use: None Drug Use: None fhx htn GI: No pertinent hx Heme/Onc: No pertinent hx Psych: No pertinent hx ENT: No pertinent hx Renal/: No pertinent hx Family History Family History: High Cholestrol, Hypertension Social History Smoke: No ALCOHOL: none Drugs: None Current Medications Current Medications Current Medications Aspirin (Children'S Aspirin) 324 mg 1X ONCE PO Last administered on 01/22/20at 08:43; Start 01/22/20 at 08:30; Stop 01/22/20 at 08:36; Status DC Sodium Chloride 1,000 ml @ 1,000 mls/hr Q1H IV Last administered on 01/22/20at 08:44; Start 01/22/20 at 08:22; Stop 01/22/20 at 09:21; Status DC Active Scripts Active Cyclobenzaprine Hcl 10 Mg Tablet 10 Mg PO TID Toprol Xl (Metoprolol Succinate) 50 Mg Tab.er.24h 1 Tab PO DAILY Reported Cilostazol 100 Mg Tablet 100 Mg PO BID Losartan Potassium 100 Mg Tablet 100 Mg PO DAILY Amlodipine Besylate 10 Mg Tablet 10 Mg PO DAILY Allergies Allergies: Coded Allergies: aspirin (Verified Adverse Reaction, Mild, raises blood pressure., 12/27/19) ROS Review of System Review of Systems Review of Systems Constitutional: Denies fever or chills [] Eyes: Denies change in visual acuity, redness, or eye pain [] HENT: Denies nasal congestion or sore throat [] Respiratory: Denies cough or shortness of breath [] Cardiovascular:The patient denies any shortness of breath, chest pain, palpitations, or orthopnea [] GI: Denies abdominal pain, nausea, vomiting, bloody stools or diarrhea [] : Denies dysuria or hematuria [] Musculoskeletal: Denies back pain or joint pain [] Integument: Denies rash or skin lesions [] Neurologic: Denies headache, focal weakness or sensory changes [] Endocrine: Denies polyuria or polydipsia [] 14 PT systems were reviewed and found to be within normal limits, except as documented Hematological and Lymphatic: No: Bleeding Problems, Blood Clots, Blood Transfusions, Brusing, Night Sweats, Pallor, Swollen Lymph Nodes, Other Respiratory: No: Cough, Hemoptysis, Orthopnea, Pleuritic Pain, Shortness of breath, SOB with excertion, Sputum Changes, Stridor, Tachypnea, Wheezing, Other Cardiovascular: No Chest Pain, No Palpitations, No Orthopnea, No Paroxysmal Noc. Dyspnea, No Edema, No Lt Headedness, No Other Gastrointestinal: No Nausea, No Vomiting, No Abdominal Pain, No Diarrhea, No Constipation, No Melena, No Hematochezia, No Other Musculoskeletal: No Gait Disturbance, No Joint Pain, No Joint Stiffness, No Joint Swelling, No Muscle Pain, No Muscular Weakness, No Pain In:, No Swelling In:, No Other Neurological: Yes Dizziness; No Behavorial Changes, No Bowel/Bladder ControlChng, No Confusion, No Gait Disturbance, No Headaches, No Impaired Coord/balance, No Memory Loss, No Numbness/Tingling, No Seizures, No Speech Problems, No Tremors, No Visual Changes, No Weakness, No Other Physical Exam Physical Exam Physical Exam Physical Exam PHYSICAL EXAM: CONSTITUTIONAL: Well developed, well nourished HEAD: normocephalic, atraumatic EENT: PERRL, EOMI. Conjunctivae normal color, sclerae non-icteric; moist mucous membranes. NECK: Supple, non-tender; no meningismus. LUNGS: Lungs CTA, breathing even and unlabored. Normal air movement. HEART: Regular rate and rhythm, no murmur CHEST: No deformity; non-tender ABDOMEN: The abdomen is soft, and non-tender, no masses or bruits. EXTREM: Normal ROM; no deformity, no calf tenderness. Normal pulses palpable in all extremities. There is no pedal edema. SKIN: No rash; no diaphoresis NEURO: Alert; normal speech and cognition; CN's grossly intact; strength grossly intact without focal deficit. BACK: No CVA TTP. General: Alert, Oriented X3, Cooperative, No acute distress HEENT: Atraumatic, PERRLA, EOMI, Mucous membr. moist/pink Lungs: Clear to auscultation, Normal air movement Heart: S1S2, RRR, no thrills Breasts: Not examined Abdomen: Normal bowel sounds, Soft Rectal Exam: not examined Extremities: No cyanosis, No edema Skin: No significant lesion Neuro: Normal speech, Strength at 5/5 X4 ext, Cranial nerves 3-12 NL Psych/Mental Status: Mental status NL, Mood NL Vitals Vitals Vital Signs Date Time Temp Pulse Resp B/P (MAP) Pulse Ox O2 Delivery O2 Flow Rate FiO2 01/22/20 08:00 97.9 57 18 159/72 (101) 100 Room Air 97.9 Labs Labs Laboratory Tests Test 01/22/20 08:38 01/22/20 08:39 White Blood Count 5.8 x10^3/uL (4.0-11.0) Red Blood Count 4.54 x10^6/uL (4.30-5.70) Hemoglobin 13.7 g/dL (13.0-17.5) Hematocrit 41.3 % (39.0-53.0) Mean Corpuscular Volume 91 fL (79-100) Mean Corpuscular Hemoglobin 30 pg (25-35) Mean Corpuscular Hemoglobin Concent 33 g/dL (31-37) Red Cell Distribution Width 13.3 % (11.5-14.5) Platelet Count 273 x10^3/uL (140-400) Neutrophils (%) (Auto) 60 % (31-73) Lymphocytes (%) (Auto) 29 % (24-48) Monocytes (%) (Auto) 9 % (0-9) Eosinophils (%) (Auto) 2 % (0-3) Basophils (%) (Auto) 1 % (0-3) Neutrophils # (Auto) 3.5 x10^3/uL (1.8-7.7) Lymphocytes # (Auto) 1.7 x10^3/uL (1.0-4.8) Monocytes # (Auto) 0.5 x10^3/uL (0.0-1.1) Eosinophils # (Auto) 0.1 x10^3/uL (0.0-0.7) Basophils # (Auto) 0.1 x10^3/uL (0.0-0.2) Sodium Level 141 mmol/L (136-145) Potassium Level 3.9 mmol/L (3.5-5.1) Chloride Level 104 mmol/L (98-107) Carbon Dioxide Level 25 mmol/L (21-32) Anion Gap 12 (6-14) Blood Urea Nitrogen 11 mg/dL (8-26) Creatinine 1.0 mg/dL (0.7-1.3) Estimated GFR (Cockcroft-Gault) 91.9 BUN/Creatinine Ratio 11 (6-20) Glucose Level 145 mg/dL (70-99) Calcium Level 9.7 mg/dL (8.5-10.1) Magnesium Level 2.3 mg/dL (1.8-2.4) Total Bilirubin 0.4 mg/dL (0.2-1.0) Aspartate Amino Transf (AST/SGOT) 21 U/L (15-37) Alanine Aminotransferase (ALT/SGPT) 17 U/L (16-63) Alkaline Phosphatase 76 U/L (46-116) Troponin I Quantitative < 0.017 ng/mL (0.000-0.055) DC-Mqr-A-Type Natriuretic Peptide 27 pg/mL (0-124) Total Protein 7.9 g/dL (6.4-8.2) Albumin 3.8 g/dL (3.4-5.0) Albumin/Globulin Ratio 0.9 (1.0-1.7) Thyroid Stimulating Hormone (TSH) 1.152 uIU/mL (0.358-3.74) Bedside Troponin I 0.01 ng/ml (<0.08) Laboratory Tests Test 01/22/20 08:38 01/22/20 08:39 White Blood Count 5.8 x10^3/uL (4.0-11.0) Red Blood Count 4.54 x10^6/uL (4.30-5.70) Hemoglobin 13.7 g/dL (13.0-17.5) Hematocrit 41.3 % (39.0-53.0) Mean Corpuscular Volume 91 fL (79-100) Mean Corpuscular Hemoglobin 30 pg (25-35) Mean Corpuscular Hemoglobin Concent 33 g/dL (31-37) Red Cell Distribution Width 13.3 % (11.5-14.5) Platelet Count 273 x10^3/uL (140-400) Neutrophils (%) (Auto) 60 % (31-73) Lymphocytes (%) (Auto) 29 % (24-48) Monocytes (%) (Auto) 9 % (0-9) Eosinophils (%) (Auto) 2 % (0-3) Basophils (%) (Auto) 1 % (0-3) Neutrophils # (Auto) 3.5 x10^3/uL (1.8-7.7) Lymphocytes # (Auto) 1.7 x10^3/uL (1.0-4.8) Monocytes # (Auto) 0.5 x10^3/uL (0.0-1.1) Eosinophils # (Auto) 0.1 x10^3/uL (0.0-0.7) Basophils # (Auto) 0.1 x10^3/uL (0.0-0.2) Sodium Level 141 mmol/L (136-145) Potassium Level 3.9 mmol/L (3.5-5.1) Chloride Level 104 mmol/L (98-107) Carbon Dioxide Level 25 mmol/L (21-32) Anion Gap 12 (6-14) Blood Urea Nitrogen 11 mg/dL (8-26) Creatinine 1.0 mg/dL (0.7-1.3) Estimated GFR (Cockcroft-Gault) 91.9 BUN/Creatinine Ratio 11 (6-20) Glucose Level 145 mg/dL (70-99) Calcium Level 9.7 mg/dL (8.5-10.1) Magnesium Level 2.3 mg/dL (1.8-2.4) Total Bilirubin 0.4 mg/dL (0.2-1.0) Aspartate Amino Transf (AST/SGOT) 21 U/L (15-37) Alanine Aminotransferase (ALT/SGPT) 17 U/L (16-63) Alkaline Phosphatase 76 U/L (46-116) Troponin I Quantitative < 0.017 ng/mL (0.000-0.055) BO-Rec-H-Type Natriuretic Peptide 27 pg/mL (0-124) Total Protein 7.9 g/dL (6.4-8.2) Albumin 3.8 g/dL (3.4-5.0) Albumin/Globulin Ratio 0.9 (1.0-1.7) Thyroid Stimulating Hormone (TSH) 1.152 uIU/mL (0.358-3.74) Bedside Troponin I 0.01 ng/ml (<0.08) Images Images Mitral Valve MV E Velocity 128.9cm/s MV DECEL TIME 174ms MV A Velocity 101.4cm/s E/A Ratio 1.3 Tricuspid Valve TR P. Velocity 352cm/s RAP ESTIMATE 3mmHg TR Peak Gr. 49mmHg RVSP 52mmHg Pulmonary Vein S1 Velocity 82.4cm/s D2 Velocity 72.3cm/s LEFT VENTRICLE The left ventricle is normal size. There is normal left ventricular wall thickness. The left ventricular systolic function is normal. The Ejection Fraction is 55-60%. There is normal LV segmental wall motion. RIGHT VENTRICLE The right ventricle is normal size. The right ventricular systolic function is normal. ATRIA The left atrium size is normal. The right atrium size is normal. The interatrial septum is intact with no evidence for an atrial septal defect or patent foramen ovale as noted on 2-D or Doppler imaging. AORTIC VALVE The aortic valve is calcified but opens well. Doppler and Color Flow revealed no significant aortic regurgitation. There is no significant aortic valvular stenosis. MITRAL VALVE The mitral valve is normal in structure and function. There is no evidence of mitral valve prolapse. There is no mitral valve stenosis. Doppler and Color Flow revealed no mitral valve regurgitation noted. TRICUSPID VALVE The tricuspid valve is normal in structure and function. Doppler and Color Flow revealed mild tricuspid regurgitation. There is moderate pulmonary hypertension. The PA pressure was estimated at 52 mmHg. There is no tricuspid valve stenosis. PULMONIC VALVE The pulmonic valve is not well visualized. Doppler and Color Flow revealed no pulmonic valvular regurgitation. There is no pulmonic valvular stenosis. GREAT VESSELS The aortic root is normal in size. The ascending aorta is normal in size. The IVC is normal in size and collapses >50% with inspiration. PERICARDIAL EFFUSION There is no evidence of significant pericardial effusion. Critical Notification Critical Value: No <Conclusion> The left ventricular systolic function is normal. The Ejection Fraction is 55-60%. There is normal LV segmental wall motion. Doppler and Color Flow revealed mild tricuspid regurgitation. There is moderate pulmonary hypertension. The PA pressure was estimated at 52 mmHg. There is no evidence of significant pericardial effusion. Signed by : Sherrell Monroe, Electronically Approved : 01/22/2020 15:41:52 DICTATED and SIGNED BY: SHERRELL MONROE MD DATE: 01/22/20 1534 VTE Prophylaxis Ordered VTE Prophylaxis Devices: No VTE Pharmacological Prophylaxi: Yes Assessment/Plan Assessment/Plan Impression: Syncope ORTHOSTASIS Abnormal EKG random hyperglycemia hx hypertension ADMITTED Cardiology consult iv fluid support cvc bed accuchecks orthostatics dvt prophylaxis DECLAN HEREDIA MD Jan 22, 2020 09:25
--- NOTE | 2020-01-22 09:31 | RAD ---
PORTABLE CHEST 1V 01/22/2020 9:08 AM INDICATION: Syncope COMPARISON: None available TECHNIQUE: Portable frontal view of the chest is provided. FINDINGS: The cardiomediastinal silhouette is within normal limits. Lungs are clear. There are no significant pleural effusions. There is no pulmonary vascular congestion. No pneumothorax. IMPRESSION: There is no acute cardiopulmonary process. Electronically signed by: Nazia Howell MD (01/22/2020 9:28 AM) [id number]
[2020-01-22] MEDS ORDERED: METO-239 PO (11:47)
[2020-01-22] MEDS: CILOSTAZOL 50 MG TABLET. PO SCH ×2 (12:26→21:57)
[2020-01-22] MEDS: LOSARTAN POTASSIUM 25 MG TABLET. PO SCH (12:26)
--- NOTE | 2020-01-22 14:07 | PDOC2 ---
MARGARETH FAULKNER [employer] 01/22/20 1407: CARDIAC CONSULT DATE OF CONSULT Date of Consult DATE: 01/22/20 TIME: 14:01 REASON FOR CONSULT Reason for Consult: syncope REFERRING PHYSICIAN Referring Physician: Dr. Han SOURCE Source: Chart review, Patient HISTORY OF PRESENT ILLNESS HISTORY OF PRESENT ILLNESS This is a 59 yo male who presented secondary to lightheadedness and syncopal episode. Patient reports he woke up this morning and sat up on the edge of the bed. Began feeling dizzy. Stood up and felt even more dizzy. Began walking to the bathroom and had syncopal episode. Thinks he was unconscious for a minute or two. Did not hit his head. Came back to bed and dizziness persisted so he had call EMS. Carlito any chest pain, palpitations, diaphoresis, SOA, or nausea/vomiting. No prior syncope. No recent illness of fevers. PAST MEDICAL HISTORY Cardiovascular: HTN GI: GERD PAST SURGICAL HISTORY Past Surgical History: No pertinent history FAMILY HISTORY Family History: Diabetes, Heart Disease SOCIAL HISTORY Smoke: No ALCOHOL: none Drugs: None Lives: with Family CURRENT MEDICATIONS CURRENT MEDICATIONS Current Medications Medications (Trade) Dose Ordered Sig/Dayne Route PRN Reason Start Time Stop Time Status Last Admin Dose Admin Aspirin (Children'S Aspirin) 324 mg 1X ONCE PO 01/22/20 08:30 01/22/20 08:36 DC 01/22/20 08:43 Sodium Chloride 1,000 ml @ 1,000 mls/hr Q1H IV 01/22/20 08:22 01/22/20 09:21 DC 01/22/20 08:44 Cilostazol (Pletal) 100 mg BID PO 01/22/20 13:00 01/22/20 12:26 Losartan Potassium (Cozaar) 100 mg DAILY PO 01/22/20 13:00 01/22/20 12:26 ALLERGIES ALLERGIES: Coded Allergies: aspirin (Verified Adverse Reaction, Mild, raises blood pressure., 12/27/19) ROS Review of System 14 point ROS conducted with pertinent positives noted above in HPI PHYSICAL EXAM General: Alert, Oriented X3, Cooperative, No acute distress HEENT: Atraumatic, Mucous membr. moist/pink Lungs: Clear to auscultation Heart: Regular rate, Normal S1, Normal S2 Abdomen: Soft, No tenderness Extremities: No edema Skin: No breakdown, No significant lesion Neuro: Normal speech, Sensation intact Psych/Mental Status: Mental status NL, Mood NL MUSCULOSKELETAL: Osteoarthritic changes both hands VITALS/I&O VITALS/I&O: Vital Signs Date Time Temp Pulse Resp B/P (MAP) Pulse Ox O2 Delivery O2 Flow Rate FiO2 01/22/20 12:26 60 164/90 01/22/20 10:30 98.1 18 99 Room Air 98.1 LABS Lab: Laboratory Tests Test 01/22/20 08:38 01/22/20 08:39 01/22/20 12:30 White Blood Count 5.8 x10^3/uL (4.0-11.0) Red Blood Count 4.54 x10^6/uL (4.30-5.70) Hemoglobin 13.7 g/dL (13.0-17.5) Hematocrit 41.3 % (39.0-53.0) Mean Corpuscular Volume 91 fL (79-100) Mean Corpuscular Hemoglobin 30 pg (25-35) Mean Corpuscular Hemoglobin Concent 33 g/dL (31-37) Red Cell Distribution Width 13.3 % (11.5-14.5) Platelet Count 273 x10^3/uL (140-400) Neutrophils (%) (Auto) 60 % (31-73) Lymphocytes (%) (Auto) 29 % (24-48) Monocytes (%) (Auto) 9 % (0-9) Eosinophils (%) (Auto) 2 % (0-3) Basophils (%) (Auto) 1 % (0-3) Neutrophils # (Auto) 3.5 x10^3/uL (1.8-7.7) Lymphocytes # (Auto) 1.7 x10^3/uL (1.0-4.8) Monocytes # (Auto) 0.5 x10^3/uL (0.0-1.1) Eosinophils # (Auto) 0.1 x10^3/uL (0.0-0.7) Basophils # (Auto) 0.1 x10^3/uL (0.0-0.2) Sodium Level 141 mmol/L (136-145) Potassium Level 3.9 mmol/L (3.5-5.1) Chloride Level 104 mmol/L (98-107) Carbon Dioxide Level 25 mmol/L (21-32) Anion Gap 12 (6-14) Blood Urea Nitrogen 11 mg/dL (8-26) Creatinine 1.0 mg/dL (0.7-1.3) Estimated GFR (Cockcroft-Gault) 91.9 BUN/Creatinine Ratio 11 (6-20) Glucose Level 145 mg/dL (70-99) H Calcium Level 9.7 mg/dL (8.5-10.1) Magnesium Level 2.3 mg/dL (1.8-2.4) Total Bilirubin 0.4 mg/dL (0.2-1.0) Aspartate Amino Transferase (AST) 21 U/L (15-37) Alanine Aminotransferase (ALT) 17 U/L (16-63) Alkaline Phosphatase 76 U/L (46-116) Troponin I Quantitative < 0.017 ng/mL (0.000-0.055) < 0.017 ng/mL (0.000-0.055) VT-Dia-L-Type Natriuretic Peptide 27 pg/mL (0-124) Total Protein 7.9 g/dL (6.4-8.2) Albumin 3.8 g/dL (3.4-5.0) Albumin/Globulin Ratio 0.9 (1.0-1.7) L Thyroid Stimulating Hormone (TSH) 1.152 uIU/mL (0.358-3.74) POC Troponin I 0.01 ng/ml (<0.08) Laboratory Tests 01/22/20 08:38 Laboratory Tests 01/22/20 08:38 ASSESSMENT/PLAN ASSESSMENT/PLAN 1. Syncope; possible vasovagal. no acute events on tele 2. Hypertension; mildly elevated 3. GERD Recommendations Orthostatic VS Is taking Toprol BID; will convert to daily and monitor for any bradyarrhythmias Echo to assess LV systolic function TSH Consider outpatient event monitor JOSE A FLEMING MD 01/23/20 1141: CARDIAC CONSULT ASSESSMENT/PLAN ASSESSMENT/PLAN Patient seen and examined. Agree with above nurse practitioner note. Plan for outpatient event recorder. Decrease metoprolol dose. Late entry for 01/22/2020 MARGARETH FAULKNER APRN Jan 22, 2020 14:07 JOSE A FLEMING MD Jan 23, 2020 11:41
[2020-01-22 14:53] LABS: CHOLESTEROL/HDL RATIO 2.7
--- NOTE | 2020-01-22 15:42 | CARD ---
MR#: [id number] Date of Study: 01/22/2020 Ordering Physician: MARGARETH FAULKNER, Referring Physician: MARGARETH FAULKNER, Tech: Mary Ward [facility] APPROVED REPORT EXAM: Two-dimensional and M-mode echocardiogram with Doppler and color Doppler. Other Information Quality : Good INDICATION Syncope 2D DIMENSIONS RVDd2.7 (2.9-3.5cm)Left Atrium(2D)2.8 (1.6-4.0cm) IVSd1.0 (0.7-1.1cm)Aortic Root(2D)3.1 (2.0-3.7cm) LVDd4.6 (3.9-5.9cm)LVOT Diameter1.9 (1.8-2.4cm) PWd1.1 (0.7-1.1cm)LVDs2.5 (2.5-4.0cm) FS (%) 30.0 %SV74.7 ml LVEF(%)60.0 (>50%) Aortic Valve AoV Peak Sam.188.5cm/sAoV VTI31.5cm AO Peak GR.14.2mmHgLVOT Peak Sam.159.9cm/s AO Mean GR.7mmHgAVA (VMAX)2.46cm2 ALLYSON (VTI)2.80cm2 Mitral Valve MV E Oqloxwrn459.9cm/sMV DECEL DZKW181ma MV A Zxifytdn948.4cm/sE/A Ratio1.3 Tricuspid Valve TR P. Svqhrkbc188se/sRAP EEXYANLB5giFv TR Peak Gr.56hhXgVKSB53hkNk Pulmonary Vein S1 Gujsqros06.4cm/sD2 Cxbbkanl91.3cm/s LEFT VENTRICLE The left ventricle is normal size. There is normal left ventricular wall thickness. The left ventricu lar systolic function is normal. The Ejection Fraction is 55-60%. There is normal LV segmental wall m otion. RIGHT VENTRICLE The right ventricle is normal size. The right ventricular systolic function is normal. ATRIA The left atrium size is normal. The right atrium size is normal. The interatrial septum is intact wit h no evidence for an atrial septal defect or patent foramen ovale as noted on 2-D or Doppler imaging. AORTIC VALVE The aortic valve is calcified but opens well. Doppler and Color Flow revealed no significant aortic r egurgitation. There is no significant aortic valvular stenosis. MITRAL VALVE The mitral valve is normal in structure and function. There is no evidence of mitral valve prolapse. There is no mitral valve stenosis. Doppler and Color Flow revealed no mitral valve regurgitation note d. TRICUSPID VALVE The tricuspid valve is normal in structure and function. Doppler and Color Flow revealed mild tricusp id regurgitation. There is moderate pulmonary hypertension. The PA pressure was estimated at 52 mmHg. There is no tricuspid valve stenosis. PULMONIC VALVE The pulmonic valve is not well visualized. Doppler and Color Flow revealed no pulmonic valvular regur gitation. There is no pulmonic valvular stenosis. GREAT VESSELS The aortic root is normal in size. The ascending aorta is normal in size. The IVC is normal in size a nd collapses >50% with inspiration. PERICARDIAL EFFUSION There is no evidence of significant pericardial effusion. Critical Notification Critical Value: No <Conclusion> The left ventricular systolic function is normal. The Ejection Fraction is 55-60%. There is normal LV segmental wall motion. Doppler and Color Flow revealed mild tricuspid regurgitation. There is moderate pulmonary hypertension. The PA pressure was estimated at 52 mmHg. There is no evidence of significant pericardial effusion. Signed by : Patricio Monroe, Electronically Approved : 01/22/2020 15:41:52
--- NOTE | 2020-01-22 15:45 | EKG ---
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
--- NOTE | 2020-01-22 15:46 | EKG ---
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
[2020-01-22] MEDS ORDERED: hydrALAZINE 20 MG/ML VIAL. IVP PRN ×2 (16:00)
[2020-01-22] MEDS ORDERED: guaiFENesin ORAL 200 MG/10 ML LIQUID. PO PRN (16:30)
[2020-01-22] MEDS ORDERED: SODIUM PHOSPHATES 19/7GM 133 ML ENEMA. PR PRN (16:30)
[2020-01-22] MEDS ORDERED: 0.9 % SODIUM CHLORIDE 10 ML DISP.SYRIN. IV PRN (16:30)
[2020-01-22] MEDS ORDERED: ACETAMINOPHEN 325 MG TABLET. PO PRN (16:30)
[2020-01-22] MEDS ORDERED: MAG HYDROX/ALUMINUM HYD/SIMETH 30 ML ORAL.SUSP PO PRN (16:30)
[2020-01-22] MEDS ORDERED: LORazepam 0.5 MG TABLET PO PRN (16:30)
[2020-01-22] MEDS ORDERED: DOCUSATE SODIUM 100 MG CAPSULE. PO PRN (16:30)
[2020-01-22] MEDS ORDERED: ONDANSETRON PF 4 MG/2 ML VIAL. IV PRN (16:30)
[2020-01-22] MEDS ORDERED: ALBUTEROL SULFATE 2.5 MG/3 ML NEBU. NEB PRN (16:30)
[2020-01-22] MEDS: IV NORMAL SALINE 1000ML BAG 1,000 ML IV SCH (18:34)
[2020-01-22] MEDS ORDERED: FLU VAX QS 2019-20 (36MOS+)/PF 0.5 ML SYRINGE. VAX IM ONE (19:30)
[2020-01-22 19:56] LABS: BARBITURATES NEG (NEG); BENZODIAZEPINES NEG (NEG); CANNABINOIDS NEG (NEG); COCAINE NEG (NEG); METHADONE NEG (NEG); OPIATES NEG (NEG); PHENCYCLIDINE NEG (NEG)
[2020-01-22 20:02] LABS: AMPHETAMINE/METHAMPHETAMINE NEG (NEG)
[2020-01-22] MEDS ORDERED: METOPROLOL SUCC 24HR ER 50 MG TAB.ER.24H. PO SCH (21:00)
[2020-01-22] MEDS ORDERED: ENOXAPARIN 40 MG/0.4 ML SYRINGE. SQ SCH (21:00)
[2020-01-23 03:31] VITALS: BP 138/80
[2020-01-23] MEDS: IV NORMAL SALINE 1000ML BAG 1,000 ML IV SCH ×2 (04:36→12:18)
[2020-01-23] MEDS: CILOSTAZOL 50 MG TABLET. PO SCH (09:18)
[2020-01-23] MEDS: LOSARTAN POTASSIUM 25 MG TABLET. PO SCH (09:18)
[2020-01-23] MEDS ORDERED: METO-239 PO (09:44)
[2020-01-23] MEDS ORDERED: CILO100T PO (09:44)
--- NOTE | 2020-01-23 09:47 | PDOC ---
PROGRESS NOTES Chief Complaint Chief Complaint Syncope ORTHOSTASIS Abnormal EKG random hyperglycemia hx hypertension History of Present Illness History of Present Illness Mr White is a 59yo M w/ PMHx claudication, HTN who presented to ED for syncopal episode and dizziness after going to the restroom. Was found bradycardic, adjusted his metoprolol and cilostazol. Seen by cardiology. Had echo: The left ventricular systolic function is normal. The Ejection Fraction is 55-60%. There is normal LV segmental wall motion. Doppler and Color Flow revealed mild tricuspid regurgitation. There is moderate pulmonary hypertension. The PA pressure was estimated at 52 mmHg. There is no evidence of significant pericardial effusion. Feeling improved today. Walked without any dizziness. HR in low 60s. Cilostazol once daily and metoprolol halved and only at QHS with HR in 60s. No pain no SOB. Needs work note. Vitals Vitals Vital Signs Date Time Temp Pulse Resp B/P (MAP) Pulse Ox O2 Delivery O2 Flow Rate FiO2 01/23/20 09:18 55 138/80 01/23/20 03:31 98.3 16 97 Room Air 98.3 Physical Exam General: Alert, Oriented X3, Cooperative, No acute distress Heart: Regular rate, Normal S1, Normal S2 Abdomen: Soft, No tenderness Extremities: No edema Skin: No breakdown, No significant lesion Labs LABS Laboratory Tests Test 01/22/20 12:30 01/22/20 15:45 01/22/20 18:45 Troponin I Quantitative < 0.017 ng/mL (0.000-0.055) < 0.017 ng/mL (0.000-0.055) Urine Opiates Screen Neg (NEG) Urine Methadone Screen Neg (NEG) Urine Barbiturates Neg (NEG) Urine Phencyclidine Screen Neg (NEG) Urine Amphetamine/Methamphetamine Neg (NEG) Urine Benzodiazepines Screen Neg (NEG) Urine Cocaine Screen Neg (NEG) Urine Cannabinoids Screen Neg (NEG) Urine Ethyl Alcohol Neg (NEG) Assessment and Plan Assessmemt and Plan Problems Medical Problems: (1) Abnormal EKG Status: Acute (2) Syncope Status: Acute Comment Review of Relevant I have reviewed the following items armen (where applicable) has been applied. Labs Laboratory Tests Test 01/22/20 08:38 01/22/20 08:39 01/22/20 12:30 01/22/20 15:45 White Blood Count 5.8 x10^3/uL (4.0-11.0) Red Blood Count 4.54 x10^6/uL (4.30-5.70) Hemoglobin 13.7 g/dL (13.0-17.5) Hematocrit 41.3 % (39.0-53.0) Mean Corpuscular Volume 91 fL (79-100) Mean Corpuscular Hemoglobin 30 pg (25-35) Mean Corpuscular Hemoglobin Concent 33 g/dL (31-37) Red Cell Distribution Width 13.3 % (11.5-14.5) Platelet Count 273 x10^3/uL (140-400) Neutrophils (%) (Auto) 60 % (31-73) Lymphocytes (%) (Auto) 29 % (24-48) Monocytes (%) (Auto) 9 % (0-9) Eosinophils (%) (Auto) 2 % (0-3) Basophils (%) (Auto) 1 % (0-3) Neutrophils # (Auto) 3.5 x10^3/uL (1.8-7.7) Lymphocytes # (Auto) 1.7 x10^3/uL (1.0-4.8) Monocytes # (Auto) 0.5 x10^3/uL (0.0-1.1) Eosinophils # (Auto) 0.1 x10^3/uL (0.0-0.7) Basophils # (Auto) 0.1 x10^3/uL (0.0-0.2) Sodium Level 141 mmol/L (136-145) Potassium Level 3.9 mmol/L (3.5-5.1) Chloride Level 104 mmol/L (98-107) Carbon Dioxide Level 25 mmol/L (21-32) Anion Gap 12 (6-14) Blood Urea Nitrogen 11 mg/dL (8-26) Creatinine 1.0 mg/dL (0.7-1.3) Estimated GFR (Cockcroft-Gault) 91.9 BUN/Creatinine Ratio 11 (6-20) Glucose Level 145 mg/dL (70-99) Calcium Level 9.7 mg/dL (8.5-10.1) Magnesium Level 2.3 mg/dL (1.8-2.4) Total Bilirubin 0.4 mg/dL (0.2-1.0) Aspartate Amino Transf (AST/SGOT) 21 U/L (15-37) Alanine Aminotransferase (ALT/SGPT) 17 U/L (16-63) Alkaline Phosphatase 76 U/L (46-116) Troponin I Quantitative < 0.017 ng/mL (0.000-0.055) < 0.017 ng/mL (0.000-0.055) < 0.017 ng/mL (0.000-0.055) WG-Xff-L-Type Natriuretic Peptide 27 pg/mL (0-124) Total Protein 7.9 g/dL (6.4-8.2) Albumin 3.8 g/dL (3.4-5.0) Albumin/Globulin Ratio 0.9 (1.0-1.7) Triglycerides Level 63 mg/dL (0-150) Cholesterol Level 167 mg/dL (0-200) LDL Cholesterol, Calculated 91 mg/dL (0-100) VLDL Cholesterol, Calculated 13 mg/dL (0-40) Non-HDL Cholesterol Calculated 104 mg/dL (0-129) HDL Cholesterol 63 mg/dL (40-60) Cholesterol/HDL Ratio 2.7 Thyroid Stimulating Hormone (TSH) 1.152 uIU/mL (0.358-3.74) Bedside Troponin I 0.01 ng/ml (<0.08) Test 01/22/20 18:45 Urine Opiates Screen Neg (NEG) Urine Methadone Screen Neg (NEG) Urine Barbiturates Neg (NEG) Urine Phencyclidine Screen Neg (NEG) Urine Amphetamine/Methamphetamine Neg (NEG) Urine Benzodiazepines Screen Neg (NEG) Urine Cocaine Screen Neg (NEG) Urine Cannabinoids Screen Neg (NEG) Urine Ethyl Alcohol Neg (NEG) Laboratory Tests Test 01/22/20 12:30 01/22/20 15:45 01/22/20 18:45 Troponin I Quantitative < 0.017 ng/mL (0.000-0.055) < 0.017 ng/mL (0.000-0.055) Urine Opiates Screen Neg (NEG) Urine Methadone Screen Neg (NEG) Urine Barbiturates Neg (NEG) Urine Phencyclidine Screen Neg (NEG) Urine Amphetamine/Methamphetamine Neg (NEG) Urine Benzodiazepines Screen Neg (NEG) Urine Cocaine Screen Neg (NEG) Urine Cannabinoids Screen Neg (NEG) Urine Ethyl Alcohol Neg (NEG) Medications Current Medications Aspirin (Children'S Aspirin) 324 mg 1X ONCE PO Last administered on 01/22/20at 08:43; Start 01/22/20 at 08:30; Stop 01/22/20 at 08:36; Status DC Sodium Chloride 1,000 ml @ 1,000 mls/hr Q1H IV Last administered on 01/22/20at 08:44; Start 01/22/20 at 08:22; Stop 01/22/20 at 09:21; Status DC Cilostazol (Pletal) 100 mg BID PO Last administered on 01/23/20at 09:18; Start 01/22/20 at 13:00 Losartan Potassium (Cozaar) 100 mg DAILY PO Last administered on 01/23/20at 09:18; Start 01/22/20 at 13:00 Metoprolol Succinate (Toprol Xl) 50 mg HS PO Last administered on 01/22/20at 21:57; Start 01/22/20 at 21:00 Hydralazine HCl (Apresoline Inj) 10 mg Q6HRS PRN IVP ELEVATED BP, SEE COMMENTS; Start 01/22/20 at 16:00; Stop 01/22/20 at 15:53; Status DC Hydralazine HCl (Apresoline Inj) 10 mg PRN Q6HRS PRN IVP ELEVATED BP, SEE COMMENTS; Start 01/22/20 at 16:00 Sodium Chloride (Normal Saline Flush) 3 ml QSHIFT PRN IV AFTER MEDS AND BLOOD DRAWS; Start 01/22/20 at 16:30 Sodium Chloride 1,000 ml @ 100 mls/hr Q10H IV Last administered on 01/23/20at 04:36; Start 01/22/20 at 16:18 Ondansetron HCl (Zofran) 4 mg PRN Q4HRS PRN IV NAUSEA/VOMITING; Start 01/22/20 at 16:30 Acetaminophen (Tylenol) 650 mg PRN Q4HRS PRN PO TEMP OVER 100.4F OR MILD PAIN; Start 01/22/20 at 16:30 Al Hydroxide/Mg Hydroxide (Mylanta Plus Xs) 30 ml PRN DAILY PRN PO HEARTBURN / GAS; Start 01/22/20 at 16:30 Sodium Monofluorophosphate (Fleet Adult) 133 ml PRN DAILY PRN [place] CONSTIPATION; Start 01/22/20 at 16:30 Docusate Sodium (Colace) 100 mg PRN BID PRN PO CONSTIPATION- 1ST CHOICE; Start 01/22/20 at 16:30 Albuterol Sulfate (Ventolin Neb Soln) 2.5 mg PRN Q4HRS PRN NEB SHORTNESS OF BREATH; Start 01/22/20 at 16:30 Guaifenesin (Robitussin) 200 mg PRN Q4HRS PRN PO COUGH; Start 01/22/20 at 16:30 Lorazepam (Ativan) 0.5 mg PRN Q4HRS PRN PO ANXIETY / AGITATION; Start 01/22/20 at 16:30 Enoxaparin Sodium (Lovenox 40mg Syringe) 40 mg Q24H SQ Last administered on 01/22/20at 21:58; Start 01/22/20 at 21:00 Influenza Virus Vaccine Quadrival (Afluria Quad 2019-20 (3yr Up) Syringe) 0.5 ml ONCE ONCE VAX IM Last administered on 01/22/20at 22:10; Start 01/22/20 at 19:30; Stop 01/22/20 at 19:31; Status DC Active Scripts Active Metoprolol Succinate ( Xl ) (Metoprolol Succinate) 25 Mg Tab.er.24h 1 Tab PO HS 30 Days Cilostazol 100 Mg Tablet 100 Mg PO DAILY 30 Days Reported Losartan Potassium 100 Mg Tablet 100 Mg PO DAILY Vitals/I & O Vital Sign - Last 24 Hours 01/22/20 01/22/20 01/22/20 01/22/20 10:30 10:30 12:26 15:00 Temp 98.1 98.0 98.1 98.0 Pulse 64 60 61 Resp 18 18 B/P (MAP) 164/90 (114) 164/90 142/80 (100) Pulse Ox 99 98 O2 Delivery Room Air Room Air Room Air 01/22/20 01/22/20 01/22/20 01/22/20 15:05 15:10 19:40 19:55 Temp 97.7 97.7 Pulse 60 66 65 Resp 18 B/P (MAP) 148/85 (106) 140/83 (102) 139/73 (95) Pulse Ox 98 O2 Delivery Room Air Room Air 01/22/20 01/22/20 01/22/20 01/22/20 20:00 20:05 21:57 22:38 Temp 97.9 97.9 Pulse 87 66 66 64 Resp 20 18 16 B/P (MAP) 150/80 (103) 142/83 (102) 142/83 137/88 (104) Pulse Ox 97 96 O2 Delivery Room Air Room Air Room Air 01/23/20 01/23/20 03:31 09:18 Temp 98.3 98.3 Pulse 55 55 Resp 16 B/P (MAP) 138/80 (99) 138/80 Pulse Ox 97 O2 Delivery Room Air Intake and Output 01/22/20 01/22/20 01/23/20 15:00 23:00 07:00 Intake Total 1000 ml 100 ml 400 ml Output Total 0 ml 450 ml 500 ml Balance 1000 ml -350 ml -100 ml LELO GARICAS MD Jan 23, 2020 09:47
--- NOTE | 2020-01-23 10:05 | PDOC2 ---
NEUROLOGY CONSULT Date of Admission Date of Admission DATE: 01/23/20 TIME: 10:00 Reason for Consult Reason for Consult: Syncope Referring Physician Referring Physician: Dr. Mason Source Source: Chart review, Patient History of Present Illness History of Present Illness The patient is a 59-year-old right-handed male who got up early yesterday morning to go to work. He felt lightheaded. He went to the bathroom where he lost consciousness. There was no convulsive activity, tongue biting, incontinence, or postictal confusion. The patient has been feeling ill with some chills the past week. His hands have been cold. he still felt lightheaded after he recovered and was lying on the bed, so he had his call emergency medical services. Cardiology has already seen the patient and backed off on his Toprol. Patient is feeling much better this morning. He has chronic dental pain and has been offered extraction of all teeth. 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 Current Medications Current Medications Current Medications Aspirin (Children'S Aspirin) 324 mg 1X ONCE PO Last administered on 01/22/20at 08:43; Start 01/22/20 at 08:30; Stop 01/22/20 at 08:36; Status DC Sodium Chloride 1,000 ml @ 1,000 mls/hr Q1H IV Last administered on 01/22/20at 08:44; Start 01/22/20 at 08:22; Stop 01/22/20 at 09:21; Status DC Cilostazol (Pletal) 100 mg BID PO Last administered on 01/23/20at 09:18; Start 01/22/20 at 13:00 Losartan Potassium (Cozaar) 100 mg DAILY PO Last administered on 01/23/20at 09:18; Start 01/22/20 at 13:00 Metoprolol Succinate (Toprol Xl) 50 mg HS PO Last administered on 01/22/20at 21:57; Start 01/22/20 at 21:00 Hydralazine HCl (Apresoline Inj) 10 mg Q6HRS PRN IVP ELEVATED BP, SEE COMMENTS; Start 01/22/20 at 16:00; Stop 01/22/20 at 15:53; Status DC Hydralazine HCl (Apresoline Inj) 10 mg PRN Q6HRS PRN IVP ELEVATED BP, SEE COMMENTS; Start 01/22/20 at 16:00 Sodium Chloride (Normal Saline Flush) 3 ml QSHIFT PRN IV AFTER MEDS AND BLOOD DRAWS; Start 01/22/20 at 16:30 Sodium Chloride 1,000 ml @ 100 mls/hr Q10H IV Last administered on 01/23/20at 04:36; Start 01/22/20 at 16:18 Ondansetron HCl (Zofran) 4 mg PRN Q4HRS PRN IV NAUSEA/VOMITING; Start 01/22/20 at 16:30 Acetaminophen (Tylenol) 650 mg PRN Q4HRS PRN PO TEMP OVER 100.4F OR MILD PAIN; Start 01/22/20 at 16:30 Al Hydroxide/Mg Hydroxide (Mylanta Plus Xs) 30 ml PRN DAILY PRN PO HEARTBURN / GAS; Start 01/22/20 at 16:30 Sodium Monofluorophosphate (Fleet Adult) 133 ml PRN DAILY PRN [place] CONSTIPATION; Start 01/22/20 at 16:30 Docusate Sodium (Colace) 100 mg PRN BID PRN PO CONSTIPATION- 1ST CHOICE; Start 01/22/20 at 16:30 Albuterol Sulfate (Ventolin Neb Soln) 2.5 mg PRN Q4HRS PRN NEB SHORTNESS OF BREATH; Start 01/22/20 at 16:30 Guaifenesin (Robitussin) 200 mg PRN Q4HRS PRN PO COUGH; Start 01/22/20 at 16:30 Lorazepam (Ativan) 0.5 mg PRN Q4HRS PRN PO ANXIETY / AGITATION; Start 01/22/20 at 16:30 Enoxaparin Sodium (Lovenox 40mg Syringe) 40 mg Q24H SQ Last administered on 01/22/20at 21:58; Start 01/22/20 at 21:00 Influenza Virus Vaccine Quadrival (Afluria Quad 2018- (3yr Up) Syringe) 0.5 ml ONCE ONCE VAX IM Last administered on 01/22/20at 22:10; Start 01/22/20 at 19:30; Stop 01/22/20 at 19:31; Status DC Active Scripts Active Metoprolol Succinate ( Xl ) (Metoprolol Succinate) 25 Mg Tab.er.24h 1 Tab PO HS 30 Days Cilostazol 100 Mg Tablet 100 Mg PO DAILY 30 Days Reported Losartan Potassium 100 Mg Tablet 100 Mg PO DAILY Allergies Allergies: Coded Allergies: aspirin (Verified Adverse Reaction, Mild, raises blood pressure., 12/27/19) ROS Review of System Negative for fever, chills, weight loss, shortness of breath, chest pain, indigestion, hematochezia, melena, and dysuria. Full 14-point review of systems is negative. Physical Exam Physical Examination General: Well-developed, well-nourished black male in no acute distress HEENT: Normocephalic andatraumatic. Tympanic membranes clear.Temporal arteriespulsatile and nontender. Neck: Supple without bruit, no meningismus Musculoskeletal: Stability:see neurologic. Gait exam:see neurologic. Tone:see neurol ogic.Strength:see neurologic. Neurological: Mental Status:intact, orientation, memory, attention span/concentration, language, fund of knowledge normal. Cranial Nerves:Pupils equal and reactive to light, extraocular movements areintact, visual harmon are full to confrontation. Facial sensation is normal. There is no facial asymmetry. Vestibulo-ocular reflex is intact. Palate elevates and tongue protrudes in midline. All other cranial related problems are negative except as mentioned before.Reflexes:2+ and symmetric with flexor plantar responses. Motor:5/5 strength with normal tone and bulk. Coordination:Finger-nose finger and rwbo-zs-siow testing are normal. Rapid alternating movements and fine finger movements are intact. Gait:Normal, including tandem. Sensory:Normal pinprick, vibration, light touch, proprioception. Vitals VITALS Vital Signs Date Time Temp Pulse Resp B/P (MAP) Pulse Ox O2 Delivery O2 Flow Rate FiO2 01/23/20 09:18 55 138/80 01/23/20 03:31 98.3 16 97 Room Air 98.3 Labs Labs Laboratory Tests Test 01/22/20 08:38 01/22/20 08:39 01/22/20 12:30 01/22/20 15:45 White Blood Count 5.8 x10^3/uL (4.0-11.0) Red Blood Count 4.54 x10^6/uL (4.30-5.70) Hemoglobin 13.7 g/dL (13.0-17.5) Hematocrit 41.3 % (39.0-53.0) Mean Corpuscular Volume 91 fL (79-100) Mean Corpuscular Hemoglobin 30 pg (25-35) Mean Corpuscular Hemoglobin Concent 33 g/dL (31-37) Red Cell Distribution Width 13.3 % (11.5-14.5) Platelet Count 273 x10^3/uL (140-400) Neutrophils (%) (Auto) 60 % (31-73) Lymphocytes (%) (Auto) 29 % (24-48) Monocytes (%) (Auto) 9 % (0-9) Eosinophils (%) (Auto) 2 % (0-3) Basophils (%) (Auto) 1 % (0-3) Neutrophils # (Auto) 3.5 x10^3/uL (1.8-7.7) Lymphocytes # (Auto) 1.7 x10^3/uL (1.0-4.8) Monocytes # (Auto) 0.5 x10^3/uL (0.0-1.1) Eosinophils # (Auto) 0.1 x10^3/uL (0.0-0.7) Basophils # (Auto) 0.1 x10^3/uL (0.0-0.2) Sodium Level 141 mmol/L (136-145) Potassium Level 3.9 mmol/L (3.5-5.1) Chloride Level 104 mmol/L (98-107) Carbon Dioxide Level 25 mmol/L (21-32) Anion Gap 12 (6-14) Blood Urea Nitrogen 11 mg/dL (8-26) Creatinine 1.0 mg/dL (0.7-1.3) Estimated GFR (Cockcroft-Gault) 91.9 BUN/Creatinine Ratio 11 (6-20) Glucose Level 145 mg/dL (70-99) Calcium Level 9.7 mg/dL (8.5-10.1) Magnesium Level 2.3 mg/dL (1.8-2.4) Total Bilirubin 0.4 mg/dL (0.2-1.0) Aspartate Amino Transf (AST/SGOT) 21 U/L (15-37) Alanine Aminotransferase (ALT/SGPT) 17 U/L (16-63) Alkaline Phosphatase 76 U/L (46-116) Troponin I Quantitative < 0.017 ng/mL (0.000-0.055) < 0.017 ng/mL (0.000-0.055) < 0.017 ng/mL (0.000-0.055) QN-Neq-E-Type Natriuretic Peptide 27 pg/mL (0-124) Total Protein 7.9 g/dL (6.4-8.2) Albumin 3.8 g/dL (3.4-5.0) Albumin/Globulin Ratio 0.9 (1.0-1.7) Triglycerides Level 63 mg/dL (0-150) Cholesterol Level 167 mg/dL (0-200) LDL Cholesterol, Calculated 91 mg/dL (0-100) VLDL Cholesterol, Calculated 13 mg/dL (0-40) Non-HDL Cholesterol Calculated 104 mg/dL (0-129) HDL Cholesterol 63 mg/dL (40-60) Cholesterol/HDL Ratio 2.7 Thyroid Stimulating Hormone (TSH) 1.152 uIU/mL (0.358-3.74) Bedside Troponin I 0.01 ng/ml (<0.08) Test 01/22/20 18:45 Urine Opiates Screen Neg (NEG) Urine Methadone Screen Neg (NEG) Urine Barbiturates Neg (NEG) Urine Phencyclidine Screen Neg (NEG) Urine Amphetamine/Methamphetamine Neg (NEG) Urine Benzodiazepines Screen Neg (NEG) Urine Cocaine Screen Neg (NEG) Urine Cannabinoids Screen Neg (NEG) Urine Ethyl Alcohol Neg (NEG) Laboratory Tests Test 01/22/20 12:30 01/22/20 15:45 01/22/20 18:45 Troponin I Quantitative < 0.017 ng/mL (0.000-0.055) < 0.017 ng/mL (0.000-0.055) Urine Opiates Screen Neg (NEG) Urine Methadone Screen Neg (NEG) Urine Barbiturates Neg (NEG) Urine Phencyclidine Screen Neg (NEG) Urine Amphetamine/Methamphetamine Neg (NEG) Urine Benzodiazepines Screen Neg (NEG) Urine Cocaine Screen Neg (NEG) Urine Cannabinoids Screen Neg (NEG) Urine Ethyl Alcohol Neg (NEG) Images Images CT head is normal to my view, radiology interpretation pending Assessment/Plan Assessment/Plan Impression: Vasovagal syncope, no evidence of seizure or primary neurological issue, he's fe eling better now Chronic dental and ear pain Recommendations: As per cardiology. No need for additional neurological studies such as EEG Okay for discharge Follow-up with ENT and oral surgeon as outpatient. Thank you for letting me help with the patient's care. ENID LANDRUM MD Jan 23, 2020 10:05
--- NOTE | 2020-01-23 10:08 | RAD ---
EXAM: CT Head without IV contrast INDICATION: Syncope. TECHNIQUE: Multi-detector row CT images were obtained of the head without the use of IV contrast. All CT scans performed at this facility utilize dose optimization techniques as appropriate to the exam, including the following: Automated exposure control and adjustment of the mA and/or KV according to patient size (this includes techniques or standardized protocols for targeted exams where dose is indication/reason for exam). COMPARISON: None FINDINGS: BRAIN PARENCHYMA: No evidence of acute intraparenchymal hemorrhage or infarct. No abnormal parenchymal density or mass. VENTRICLES & EXTRA-AXIAL SPACES: Ventricles are within normal limits. Basilar cisterns are patent. No pathologic extra-axial fluid collection or mass. ORBITS: Orbital contents are unremarkable. SINUSES: Visualized paranasal sinuses and mastoid air cells are clear. OSSEOUS & SOFT TISSUES: Calvarium and skull base are intact. IMPRESSION: Normal CT of the head without contrast. Electronically signed by: Krys Dozier MD (01/23/2020 10:05 AM) [id number]
[2020-01-23 11:00] VITALS: BP 122/64
--- NOTE | 2020-01-23 12:35 | PDOC ---
[employer] 01/23/20 1235: CARDIO Progress Notes Date and Time Date of Service 01/23/2020 Time of Evaluation 1210 Subjective Subjective: No Chest Pain, No shortness of breath, No Palpitations Vitals Vitals Vital Signs Date Time Temp Pulse Resp B/P (MAP) Pulse Ox O2 Delivery O2 Flow Rate FiO2 01/23/20 09:18 55 138/80 01/23/20 08:00 Room Air 01/23/20 03:31 98.3 16 97 98.3 Weight Weight [ ] Input and Output Intake and Output Intake and Output 01/23/20 07:00 Intake Total 1500 ml Output Total 950 ml Balance 550 ml Intake Oral 500 ml IV Total 1000 ml Output Urine Total 950 ml # Voids 1 Laboratory Labs Laboratory Tests Test 01/22/20 12:30 01/22/20 15:45 01/22/20 18:45 Troponin I Quantitative < 0.017 ng/mL (0.000-0.055) < 0.017 ng/mL (0.000-0.055) Urine Opiates Screen Neg (NEG) Urine Methadone Screen Neg (NEG) Urine Barbiturates Neg (NEG) Urine Phencyclidine Screen Neg (NEG) Urine Amphetamine/Methamphetamine Neg (NEG) Urine Benzodiazepines Screen Neg (NEG) Urine Cocaine Screen Neg (NEG) Urine Cannabinoids Screen Neg (NEG) Urine Ethyl Alcohol Neg (NEG) Physical Exam HEENT: Neck Supple W Full Motion Chest: Symmetric LUNGS: Clear to Auscultation Heart: S1S2, RRR (SR) Abdomen: Soft N/T Extremities: No Edema, No Calf Tenderness Neurology: alert, oriented, follow commands Assessment Assessment 1. Syncope; suspect vasovagal accentuated by poor hydration with concurrent BP med use. 2. Hypertension; controlled 3. GERD 4. Moderate pulmonary HTN: EF and WM nml. Recommendations 1. Negative for orthostasis. No further recurrence. So far SR with no ectopies. outpt event monitor is a consideration fi further recurrence. 2. Continue current BP regimen and discussed hydration adequacy. 3. May DC per cardiac standpoint JOSE A FLEMING MD 01/24/20 1150: CARDIO Progress Notes Plan Plan Late entry for 01/23/2020 Patient seen and examined. Agree with above nurse practitioner note. [employer] Jan 23, 2020 12:35 JOSE A FLEMING MD Jan 24, 2020 11:50
--- NOTE | 2020-01-23 14:26 | PDOC3 ---
Discharge Summary Visit Information Date of Admission: Jan 22, 2020 Date of Discharge: Jan 23, 2020 Admitting Diagnosis: Syncope Final Diagnosis Problems Medical Problems: (1) Abnormal EKG Status: Acute (2) Syncope Status: Acute Brief Hospital Course Allergies Allergies Coded Allergies Type Severity Reaction Last Updated Verified aspirin Adverse Reaction Mild raises blood pressure. 12/27/19 Yes Vital Signs Vital Signs Date Time Temp Pulse Resp B/P (MAP) Pulse Ox O2 Delivery O2 Flow Rate FiO2 01/23/20 11:00 97.6 59 18 122/64 (83) 98 Room Air 97.6 Lab Results Laboratory Tests Test 01/22/20 08:38 01/22/20 08:39 01/22/20 12:30 01/22/20 15:45 White Blood Count 5.8 x10^3/uL (4.0-11.0) Red Blood Count 4.54 x10^6/uL (4.30-5.70) Hemoglobin 13.7 g/dL (13.0-17.5) Hematocrit 41.3 % (39.0-53.0) Mean Corpuscular Volume 91 fL (79-100) Mean Corpuscular Hemoglobin 30 pg (25-35) Mean Corpuscular Hemoglobin Concent 33 g/dL (31-37) Red Cell Distribution Width 13.3 % (11.5-14.5) Platelet Count 273 x10^3/uL (140-400) Neutrophils (%) (Auto) 60 % (31-73) Lymphocytes (%) (Auto) 29 % (24-48) Monocytes (%) (Auto) 9 % (0-9) Eosinophils (%) (Auto) 2 % (0-3) Basophils (%) (Auto) 1 % (0-3) Neutrophils # (Auto) 3.5 x10^3/uL (1.8-7.7) Lymphocytes # (Auto) 1.7 x10^3/uL (1.0-4.8) Monocytes # (Auto) 0.5 x10^3/uL (0.0-1.1) Eosinophils # (Auto) 0.1 x10^3/uL (0.0-0.7) Basophils # (Auto) 0.1 x10^3/uL (0.0-0.2) Sodium Level 141 mmol/L (136-145) Potassium Level 3.9 mmol/L (3.5-5.1) Chloride Level 104 mmol/L (98-107) Carbon Dioxide Level 25 mmol/L (21-32) Anion Gap 12 (6-14) Blood Urea Nitrogen 11 mg/dL (8-26) Creatinine 1.0 mg/dL (0.7-1.3) Estimated GFR (Cockcroft-Gault) 91.9 BUN/Creatinine Ratio 11 (6-20) Glucose Level 145 mg/dL (70-99) Calcium Level 9.7 mg/dL (8.5-10.1) Magnesium Level 2.3 mg/dL (1.8-2.4) Total Bilirubin 0.4 mg/dL (0.2-1.0) Aspartate Amino Transf (AST/SGOT) 21 U/L (15-37) Alanine Aminotransferase (ALT/SGPT) 17 U/L (16-63) Alkaline Phosphatase 76 U/L (46-116) Troponin I Quantitative < 0.017 ng/mL (0.000-0.055) < 0.017 ng/mL (0.000-0.055) < 0.017 ng/mL (0.000-0.055) JD-Jhm-[id number]-Type Natriuretic Peptide 27 pg/mL (0-124) Total Protein 7.9 g/dL (6.4-8.2) Albumin 3.8 g/dL (3.4-5.0) Albumin/Globulin Ratio 0.9 (1.0-1.7) Triglycerides Level 63 mg/dL (0-150) Cholesterol Level 167 mg/dL (0-200) LDL Cholesterol, Calculated 91 mg/dL (0-100) VLDL Cholesterol, Calculated 13 mg/dL (0-40) Non-HDL Cholesterol Calculated 104 mg/dL (0-129) HDL Cholesterol 63 mg/dL (40-60) Cholesterol/HDL Ratio 2.7 Thyroid Stimulating Hormone (TSH) 1.152 uIU/mL (0.358-3.74) Bedside Troponin I 0.01 ng/ml (<0.08) Test 01/22/20 18:45 Urine Opiates Screen Neg (NEG) Urine Methadone Screen Neg (NEG) Urine Barbiturates Neg (NEG) Urine Phencyclidine Screen Neg (NEG) Urine Amphetamine/Methamphetamine Neg (NEG) Urine Benzodiazepines Screen Neg (NEG) Urine Cocaine Screen Neg (NEG) Urine Cannabinoids Screen Neg (NEG) Urine Ethyl Alcohol Neg (NEG) Laboratory Tests Test 01/22/20 15:45 01/22/20 18:45 Troponin I Quantitative < 0.017 ng/mL (0.000-0.055) Urine Opiates Screen Neg (NEG) Urine Methadone Screen Neg (NEG) Urine Barbiturates Neg (NEG) Urine Phencyclidine Screen Neg (NEG) Urine Amphetamine/Methamphetamine Neg (NEG) Urine Benzodiazepines Screen Neg (NEG) Urine Cocaine Screen Neg (NEG) Urine Cannabinoids Screen Neg (NEG) Urine Ethyl Alcohol Neg (NEG) Brief Hospital Course Mr White is a 59yo M w/ PMHx claudication, HTN who presented to ED for syncopal episode and dizziness after going to the restroom. Was found bradycardic, adjusted his metoprolol and cilostazol. Seen by cardiology. Had echo: The left ventricular systolic function is normal. The Ejection Fraction is 55-60%. There is normal LV segmental wall motion. Doppler and Color Flow revealed mild tricuspid regurgitation. There is moderate pulmonary hypertension. The PA pressure was estimated at 52 mmHg. There is no evidence of significant pericardial effusion. Feeling improved today. Walked without any dizziness. HR in low 60s. Cilostazol once daily and metoprolol halved and only at QHS with HR in 60s. No pain no SOB. Needs work note. Problem list: Syncope - 2/2 vasovagal syncope, autonomic with positive ORTHOSTASIS Abnormal EKG random hyperglycemia hypertension Claudication Greater than 30 minutes spent on d/c Discharge Information Condition at Discharge: Improved Follow Up: Weeks (1) Disposition/Orders: D/C to Home Scheduled Cilostazol (Cilostazol) 100 Mg Tablet, 100 MG PO DAILY for CIRCULATION for 30 Days, #30 Prescribed by: LELO GARCIAS MD on 01/23/20 0944 Losartan Potassium (Losartan Potassium) 100 Mg Tablet, 100 MG PO DAILY for HYPERTENSION, (Reported) Entered as Reported by: KATE FONTAINE on 12/27/19 0646 Last Action: Converted on 01/22/20 1144 by ALEXA ZELAYA Metoprolol Succinate (Metoprolol Succinate ( Xl )) 25 Mg Tab.er.24h, 1 TAB PO HS for htn for 30 Days, #30 Ref 5 Prescribed by: LELO GARCIAS MD on 01/23/20 0944 Discontinued Medications Metoprolol Succinate (Toprol Xl) 50 Mg Tab.er.24h, 1 TAB PO DAILY, #90 Ref 1 Prescribed by: AUDREY MEDEL APRN on 12/21/17 2358 LELO GARCIAS MD Jan 23, 2020 14:26
[2020-01-23 15:00] VITALS: BP 129/75
== END 2020-01-23 17:05 | disposition home or self-care (01) | DRG 312 ==
LOC: ER 07:59 → 2 SOUTH 09:35
PROVIDERS: ADMIT Family Medicine; ATTEND Family Medicine
DX: I95.1 Orthostatic hypotension (principal); R73.9 Hyperglycemia, unspecified; G89.29 Other chronic pain; I10 Essential (primary) hypertension; I27.20 Pulmonary hypertension, unspecified; I73.9 Peripheral vascular disease, unspecified; K08.89 Other specified disorders of teeth and supporting structures; K21.9 Gastro-esophageal reflux disease without esophagitis; Z82.0 Family history of epilepsy and other diseases of the nervous system; Z82.49 Family history of ischemic heart disease and other diseases of the circulatory system; Z83.3 Family history of diabetes mellitus; Z88.8 Allergy status to other drugs, medicaments and biological substances
CPT/HCPCS: 36415; 70450; 71045; 80053; 80061; 80307; 83735; 83880; 84443; 84484; 85025; 87040; 90471; 90686; 93005; 93306; 94640; J1650; J7030; G0378

== ENCOUNTER 2020-01-28 21:34 | Emergency (ER) | payer BC ==
[~2020-01-28] VITALS: Ht 170.2 cm; Wt 68.0 kg
[~2020-01-28 21:34] MED LIST changes: +METO-239 PO
[2020-01-28 21:50] VITALS: BP 150/95
[2020-01-28] MEDS ORDERED: ACET-704 PO (22:31)
[2020-01-28] MEDS ORDERED: AMOX500T PO (22:31)
--- NOTE | 2020-01-28 22:32 | PHYS DOC ---
Past Medical History Past Medical History: GERD, Hypertension Additional Past Medical Histor: POOR CIRCULATION Past Surgical History: No Surgical History Smoking Status: Never Smoker Alcohol Use: None Drug Use: None Adult General Chief Complaint Chief Complaint: DENTAL PROBLEM HPI HPI Patient is a 59 year old male with history of hypertension who presents to the ED today complaining of 8 out of 10 front upper and lower dental pain with infection that began months ago but has gotten worse in the last couple days. Patient denies any fever or trismus. He reports he has an appointment with a dentist on Wednesday this week. Review of Systems Review of Systems Constitutional: Denies fever or chills [] HENT: Reports upper and lower front teeth dental pain denies nasal congestion or sore throat [] Musculoskeletal: Denies back pain or joint pain [] Integument: Denies rash or skin lesions [] Neurologic: Denies headache, focal weakness or sensory changes [] All other systems were reviewed and found to be within normal limits, except as documented in this note. Allergies Allergies Allergies Coded Allergies Type Severity Reaction Last Updated Verified aspirin Adverse Reaction Mild raises blood pressure. 12/27/19 Yes Physical Exam Physical Exam Constitutional: Well developed, well nourished, no acute distress, non-toxic appearance. [] HENT: Normocephalic, atraumatic, bilateral external ears normal, oropharynx moist, no oral exudates, nose normal. [] Teeth #10 and 11 are broken and decayed, left upper front tooth is also decayed. Poor dentition, no gum erythema. Skin: Warm, dry, no erythema, no rash. [] Back: No tenderness, no CVA tenderness. [] Extremities: No tenderness, no cyanosis, no clubbing, ROM intact, no edema. [] Neurologic: Alert and oriented X 3, normal motor function, normal sensory function, no focal deficits noted. [] Psychologic: Affect normal, judgement normal, mood normal. [] Current Patient Data Vital Signs Vital Signs Date Time Temp Pulse Resp B/P (MAP) Pulse Ox O2 Delivery O2 Flow Rate FiO2 01/28/20 21:50 98.0 65 16 150/95 (113) 96 Room Air 98.0 EKG EKG [] Radiology/Procedures Radiology/Procedures [] Course & Med Decision Making Course & Med Decision Making Pertinent Labs and Imaging studies reviewed. (See chart for details) This is a 59-year-old male patient with dental infection. Discharged on amoxicillin and 10 tablets of Tylenol 3, he is allergic to aspirin, follow-up with the dentist on Wednesday as scheduled. Dragon Disclaimer Dragon Disclaimer This electronic medical record was generated, in whole or in part, using a voice recognition dictation system. Departure Departure Impression: Primary Impression: Dental infection Additional Impression: Dentalgia Disposition: HOME, SELF-CARE Condition: STABLE Referrals: Raman COOPER MD (PCP) Follow-up in 1 to 2 weeks Patient Instructions: Dental Pain, [id number] Additional Instructions: You have dental infection. Complete the prescribed antibiotics and follow-up with your dentist on Wednesday. Scripts Acetaminophen With Codeine (TYLENOL WITH CODEINE #3 TABLET) 1 Each Tablet 1 TAB PO PRN Q6HRS PRN for pain MDD 4 Tablet(s), #20 TAB 0 Refills Prov: YEVGENIY ROMANO APRN 01/28/20 Amoxicillin (AMOXICILLIN) 500 Mg Tablet 1 TAB PO BID, #20 TAB Prov: YEVGENIY ROMANO APRN 01/28/20 Problem Qualifiers YEVGENIY ROMANO APRN Jan 28, 2020 22:32
== END 2020-01-28 22:49 | disposition home or self-care (01) ==
LOC: ER 21:34
DX: K04.7 Periapical abscess without sinus (principal); I10 Essential (primary) hypertension; K21.9 Gastro-esophageal reflux disease without esophagitis; Z88.6 Allergy status to analgesic agent
CPT/HCPCS: 99283

== ENCOUNTER 2020-02-13 16:52 | Emergency (ER) | payer BC ==
[~2020-02-13] VITALS: Ht 170.2 cm; Wt 70.0 kg
[~2020-02-13 16:52] MED LIST changes: +ACET-704 PO; +AMOX500T PO
[2020-02-13 17:10] VITALS: BP 169/90
[2020-02-13] MEDS ORDERED: AZIT250T PO (17:41)
[2020-02-13] MEDS ORDERED: PANT20TA2 PO (17:41)
[2020-02-13] MEDS ORDERED: GENT5DRO3 EACHEYE (17:41)
--- NOTE | 2020-02-13 17:42 | PHYS DOC ---
Past Medical History Past Medical History: GERD, Hypertension Additional Past Medical Histor: POOR CIRCULATION Past Surgical History: No Surgical History Smoking Status: Never Smoker Alcohol Use: None Drug Use: None Adult General Chief Complaint Chief Complaint: Congestion HPI HPI Patient is a 59 year old M who is here today with concerns of sinus pressure and congestion and acid reflux. He states he was in the hospital recently for syncope and also so his PCP for f/u and they are going to have him see a lung specialist but the sinus pressure has been building and flonase is only mildly helping. Review of Systems Review of Systems Constitutional: Denies fever or chills Eyes: Denies change in visual acuity, redness, or eye pain HENT: Reports nasal congestion, sinus pressure and scratchy throat Respiratory: Denies cough or shortness of breath Cardiovascular: Denies chest pain GI: Denies abdominal pain, nausea, vomiting, bloody stools or diarrhea Musculoskeletal: Denies back pain or joint pain Integument: Denies rash or skin lesions Neurologic: Denies headache, focal weakness or sensory changes All other systems were reviewed and found to be within normal limits, except as documented in this note. Allergies Allergies Allergies Coded Allergies Type Severity Reaction Last Updated Verified aspirin Adverse Reaction Mild raises blood pressure. 12/27/19 Yes Physical Exam Physical Exam Constitutional: Well developed, well nourished, no acute distress, non-toxic appearance. Eyes: yellow drainage noted in B inner eye canthus HENT: Normocephalic, atraumatic, bilateral external ears normal, oropharynx moist, no oral exudates. Nasal congestion, yellow, sinus pressure and pain B maxillary and frontal sinuses. Neck: Normal range of motion, no tenderness, supple, no stridor. Cardiovascular:Heart rate regular rhythm, no murmur Lungs & Thorax: Bilateral breath sounds clear to auscultation Abdomen: Bowel sounds normal, soft, no tenderness, no masses, no pulsatile masses. Skin: Warm, dry, no erythema, no rash. Back: No tenderness, no CVA tenderness. Extremities: No tenderness, no cyanosis, no clubbing, ROM intact, no edema. Neurologic: Alert and oriented X 3, normal motor function, normal sensory function, no focal deficits noted. Psychologic: Affect normal, judgement normal, mood normal. Current Patient Data Vital Signs Vital Signs Date Time Temp Pulse Resp B/P (MAP) Pulse Ox O2 Delivery O2 Flow Rate FiO2 3/24/20 17:10 98.1 59 16 169/90 (116) 100 Room Air 98.1 EKG EKG [] Radiology/Procedures Radiology/Procedures [] Course & Med Decision Making Course & Med Decision Making Will cover pt for Sinusitis and conjunctivitis and have him continue his Flonase. Pt also requesting medicine for his GERD. Pt denies cough or fever and lungs are clear. Vitals stable and he appears nontoxic. Pt to return with any worsening symptoms. Dragon Disclaimer Dragon Disclaimer This electronic medical record was generated, in whole or in part, using a voice recognition dictation system. Departure Departure Impression: Primary Impression: Acid reflux Additional Impression: Sinusitis Disposition: HOME, SELF-CARE Condition: STABLE Referrals: Raman COOPER MD (PCP) SHY CALVILLO MD Patient Instructions: Gastroesophageal Reflux Disease, Adult, Sinusitis, [id number] Additional Instructions: You should follow up with your doctor and the lung doctor as scheduled. The lung doctor tobacco conditioner for us today is listed below. Continue your blood pressure medications and the flonase. Scripts Pantoprazole Sodium (PROTONIX) 20 Mg Tablet. 1 TAB PO DAILY, #30 TAB Prov: LARRY SCHROEDER 02/13/20 Gentamicin Sulfate (GENTAMICIN SULFATE 0.3% OPH SOLN) 5 Ml Drops 1 DROP EACHEYE QID for 5 Days, #5 ML 0 Refills Prov: LARRY SCHROEDER 02/13/20 Azithromycin (ZITHROMAX) 250 Mg Tablet 1 PKG PO UD, #6 TAB Prov: LARRY SCHROEDER 02/13/20 Problem Qualifiers LARRY SCHROEDER Feb 13, 2020 17:42
== END 2020-02-13 17:58 | disposition home or self-care (01) ==
LOC: ER 16:52
DX: K21.9 Gastro-esophageal reflux disease without esophagitis (principal); R55 Syncope and collapse; J32.0 Chronic maxillary sinusitis; J32.1 Chronic frontal sinusitis; I10 Essential (primary) hypertension; Z88.6 Allergy status to analgesic agent
CPT/HCPCS: 99283

== ENCOUNTER 2020-02-18 20:12 | Emergency (ER) | payer BC ==
[~2020-02-18] VITALS: Ht 170.2 cm; Wt 70.0 kg
[~2020-02-18 20:12] MED LIST changes: +AZIT250T PO; +GENT5DRO3 EACHEYE; +PANT20TA2 PO
[2020-02-18 21:05] VITALS: BP 131/83
[2020-02-18] MEDS ORDERED: LIDO:MAALOX 1:1 20 ML SINGLE DOSE. ONE (21:41)
--- NOTE | 2020-02-18 21:45 | PHYS DOC ---
Past Medical History Past Medical History: GERD, Hypertension Additional Past Medical Histor: POOR CIRCULATION (LARRY SCHROEDER) Past Surgical History: No Surgical History (LARRY SCHROEDER) Smoking Status: Never Smoker Alcohol Use: None Drug Use: None (LARRY SCHROEDER) Adult General Chief Complaint Chief Complaint: SORE THROAT HPI HPI Patient is a 59 year old M who is known to me from a prior visit who is here with "burning in his throat" that he thinks is his acid reflux. He has been taking his medicine as prescribed but states it isn't helping. He denies cough or fever. He was recently seen for a sinus infection and conjunctivitis and states those are improving. (LARRY SCHROEDER) Review of Systems Review of Systems Constitutional: Denies fever or chills Eyes: Denies change in visual acuity, redness, or eye pain HENT: Denies nasal congestion. Reports "burning" in his throat Respiratory: Denies cough or shortness of breath Cardiovascular: Denies chest pain GI: Denies abdominal pain, nausea, vomiting, bloody stools or diarrhea : Denies dysuria or hematuria Musculoskeletal: Denies back pain or joint pain Integument: Denies rash or skin lesions Neurologic: Denies headache, focal weakness or sensory changes Endocrine: Denies polyuria or polydipsia All other systems were reviewed and found to be within normal limits, except as documented in this note. (LARRY SCHROEDER) Current Medications Current Medications Current Medications Medications (Trade) Dose Ordered Sig/Dayne Start Time Stop Time Status Last Admin Dose Admin Multi-Ingredient Mouthwash/Gargle (Gi Cocktail) 20 ml STK-MED ONCE 02/18/20 21:41 02/18/20 21:42 DC (RADHA DARBY DO) Allergies Allergies Allergies Coded Allergies Type Severity Reaction Last Updated Verified aspirin Adverse Reaction Mild raises blood pressure. 12/27/19 Yes (RADHA DARBY DO) Physical Exam Physical Exam Constitutional: Well developed, well nourished, no acute distress, non-toxic appearance. HENT: Normocephalic, atraumatic, bilateral external ears normal, oropharynx moist, no oral exudates, nose normal. Eyes: PERRLA, EOMI Neck: Normal range of motion, no tenderness, supple, no stridor. Cardiovascular:Heart rate regular rhythm, no murmur Lungs & Thorax: Bilateral breath sounds clear to auscultation Abdomen: Bowel sounds normal, soft, no tenderness, no masses, no pulsatile masses. Skin: Warm, dry, no erythema, no rash. Back: No tenderness, no CVA tenderness. Extremities: No tenderness, no cyanosis, no clubbing, ROM intact, no edema. Neurologic: Alert and oriented X 3, normal motor function, normal sensory function, no focal deficits noted. Psychologic: Affect normal, judgement normal, mood normal. (LARRY SCHROEDER) Current Patient Data Vital Signs Vital Signs Date Time Temp Pulse Resp B/P (MAP) Pulse Ox O2 Delivery O2 Flow Rate FiO2 02/18/20 21:05 98.0 66 16 131/83 (99) 98 Room Air 98.0 (RADHA DARBY DO) Lab Values Laboratory Tests Test 02/18/20 21:30 Influenza Type A Antigen Negative (NEGATIVE) Influenza Type B Antigen Negative (NEGATIVE) Group A Streptococcus Rapid Negative (NEGATIVE) Microbiology 02/18/20 Nose/Throat Culture - Final, Complete 02/18/20 - Final, Complete (RADHA DARBY DO) Lab Values Laboratory Tests Test 02/18/20 21:30 Influenza Type A Antigen Negative (NEGATIVE) Influenza Type B Antigen Negative (NEGATIVE) Group A Streptococcus Rapid Negative (NEGATIVE) (LARRY SCHROEDER) EKG EKG [] (LARRY SCHROEDER) Radiology/Procedures Radiology/Procedures [] (LARRY SCHROEDER) Course & Med Decision Making Course & Med Decision Making Pertinent Labs and Imaging studies reviewed. (See chart for details) [] (LARRY SCHROEDER) Dragon Disclaimer Dragon Disclaimer Suspect pt's symptoms might be combination of his GERD and some anxiety. He does report feeling better after GI cocktail so will write for max strength Maalox at home and have asked him to call to f/u with PCP or GI. Pt appears well with no signs of distress. (LARRY SCHROEDER) Departure Departure Impression: Primary Impression: Acid reflux Disposition: HOME, SELF-CARE Condition: IMPROVED Referrals: Raman COOPER MD (PCP) Patient Instructions: Diet for Gastroesophageal Reflux Disease, Adult, [id number] Additional Instructions: You need to call your PCP or the GI doctor to schedule follow up with all the problems you are having with your reflux and burning throat. Follow bland diet and push fluids and rest and take your medications as prescribed. Scripts Mag Hydrox/Al Hydrox/Simeth (MAALOX MAXIMUM STRENGTH SUSP) 355 Ml Oral.susp 15 ML PO BID PRN for INDIGESTION MDD 30 mls, #355 ML Prov: LARRY SCHROEDER 02/18/20 Attending Signature Attending Signature I have reviewed the PA/SPORTS BOOK WRITER's note and plan of care. I was available for consultation as needed during the patient's visit in the emergency department. I agree with the clinical impression, plan, and disposition. (RADHA DARBY DO) LARRY SCHROEDER Feb 18, 2020 21:45 RADHA DARBY DO Feb 22, 2020 01:54
[2020-02-18 21:55] LABS: INFLUENZA A PATIENT NEGATIVE (NEGATIVE); INFLUENZA B PATIENT NEGATIVE (NEGATIVE)
[2020-02-18] MEDS ORDERED: MAG355OR12 PO (21:57)
[2020-02-18] MEDS ORDERED: LIDO:MAALOX 1:1 20 ML SINGLE DOSE. SWSW ONE (22:00)
== END 2020-02-18 22:22 | disposition home or self-care (01) ==
LOC: ER 20:12
DX: K21.9 Gastro-esophageal reflux disease without esophagitis (principal); I10 Essential (primary) hypertension; Z88.6 Allergy status to analgesic agent
CPT/HCPCS: 87070; 87804; 87880; 99284

== ENCOUNTER 2020-03-21 21:14 | Emergency (ER) | payer BC ==
[~2020-03-21] VITALS: Ht 170.2 cm; Wt 63.6 kg
[~2020-03-21 21:14] MED LIST changes: +MAG355OR12 PO
--- NOTE | 2020-03-21 22:05 | PHYS DOC ---
Past Medical History Past Medical History: GERD, Hypertension Additional Past Medical Histor: POOR CIRCULATION Past Surgical History: No Surgical History Smoking Status: Never Smoker Alcohol Use: None Drug Use: None General Adult EDM: Chief Complaint: Congestion HPI: HPI: Patient is a 59 year old male who presents with nasal congestion that has been ongoing for last 6 weeks. He has been on Flonase for this however it only helps for a short period of time. He sometimes gets a scratchy throat with this. He is also been having constipation which was not helped by increased fiber. He denies any shortness of breath, fever, neck pain, chest pain, cough. Review of Systems: Review of Systems: General: Denies fever, chills, sweats, fatigue Eyes: Denies drainage, blurred vision HENT: Denies rhinorrhea, sore throat, reports nasal congestion Respiratory: Denies cough, shortness of breath, wheezing Cardiac: Denies edema, palpitations, chest pain GI: Denies abdominal pain, N/V MSK: Denies back pain, neck pain Skin: Denies rash, jaundice Neuro: Denies headache, dizziness Psychiatric: Denies SI/HI Heart Score: Risk Factors: Risk Factors: DM, Current or recent (<one month) smoker, HTN, HLP, family history of CAD, obesity. Risk Scores: Score 0 - 3: 2.5% MACE over next 6 weeks - Discharge Home Score 4 - 6: 20.3% MACE over next 6 weeks - Admit for Clinical Observation Score 7 - 10: 72.7% MACE over next 6 weeks - Early Invasive Strategies Allergies: Allergies: Allergies Coded Allergies Type Severity Reaction Last Updated Verified aspirin Adverse Reaction Mild raises blood pressure. 12/27/19 Yes Physical Exam: PE: Constitutional: Well developed, well nourished, Cooperative, NAD, non-toxic appearing HEENT: Normocephalic, atraumatic, oropharynx moist, EOMI, PERRL, no drainage from eyes, normal conjunctiva, nasal turbinates swollen Neck: Supple, normal range of motion, no stridor Cardiovascular: RRR, 2+ radial pulses bilaterally, no edema Respiratory: CTA bilaterally, no respiratory distress, no wheezing/crackles Abdomen: Soft, nontender, nondistended, no masses Skin: Warm, dry, intact Extremities: No obvious deformities Neurologic: Alert and Oriented x3, motor and sensory function grossly normal, no focal deficits Psychologic: Normal affect, normal judgment, normal mood. No SI/HI Current Patient Data: Vital Signs: Vital Signs Date Time Temp Pulse Resp B/P (MAP) Pulse Ox O2 Delivery O2 Flow Rate FiO2 03/21/20 21:30 98.8 64 20 145/93 (110) Room Air 98.8 EKG: EKG: [] Radiology/Procedures: Radiology/Procedures: [] Course & Med Decision Making: Course & Med Decision Making Pertinent Labs and Imaging studies reviewed. (See chart for details) Patient is a 59-year-old male who presents to the emergency room with nasal congestion and constipation. We will start him on Colace for constipation. This is been an intermittent problem for quite some time and has not changed. He has seen his primary care doctor for this previously. Patient's congestion is likely secondary to sinusitis and allergies. We will start him on Zyrtec-D. He will follow-up with his primary care doctor as scheduled. Patient is very well-appearing on exam. He has not had fevers or any other concerning symptoms. He does not have any symptoms that are consistent with novel coronavirus 19. Patient's test results and vitals while in the ED were fully reviewed and discussed with the patient. Patient is stable and at this time does not need admission to the hospital. We have discussed strict return precautions and the importance of following up with their Primary Care Physician. Patient stated understanding and was given an opportunity to ask any questions. Taylaon Disclaimer: Prateek Disclaimer: This electronic medical record was generated, in whole or in part, using a voice recognition dictation system. Departure Departure Referrals: Raman COOPER MD (PCP) Scripts Docusate Sodium (COLACE) 100 Mg Capsule 1 CAP PO BID for 30 Days, #60 CAP 0 Refills Prov: IGLESIA LOUIS MD 03/21/20 Cetirizine Hcl/Pseudoephedrine (ZYRTEC-D TABLET) 1 Each Tab.er.12h 1 TAB PO BID, #30 TAB Prov: IGLESIA LOUIS MD 03/21/20 IGLESIA LOUIS MD Mar 21, 2020 22:05
[2020-03-21] MEDS ORDERED: DOCU-109 PO (22:09)
[2020-03-21] MEDS ORDERED: CETI1TAB7 PO (22:09)
[2020-03-21 22:20] VITALS: BP 133/76
== END 2020-03-21 22:20 | disposition home or self-care (01) ==
LOC: ER 21:14
DX: R09.81 Nasal congestion (principal); K59.00 Constipation, unspecified; R09.89 Other specified symptoms and signs involving the circulatory and respiratory systems; I10 Essential (primary) hypertension; K21.9 Gastro-esophageal reflux disease without esophagitis; Z88.6 Allergy status to analgesic agent
CPT/HCPCS: 99282

== ENCOUNTER 2020-04-18 00:39 | Emergency (ER) | payer BC ==
[~2020-04-18] VITALS: Ht 170.2 cm; Wt 64.0 kg
[~2020-04-18 00:39] MED LIST changes: +CETI1TAB7 PO; +DOCU-109 PO
[2020-04-18 00:53] VITALS: BP 158/87
[2020-04-18] MEDS ORDERED: KETOROLAC 60 MG/2 ML VIAL. IM ONE (01:00)
[2020-04-18] MEDS ORDERED: NAPR-514 PO (01:02)
--- NOTE | 2020-04-18 01:03 | PHYS DOC ---
Past Medical History Past Medical History: GERD, Hypertension Additional Past Medical Histor: POOR CIRCULATION Past Surgical History: No Surgical History Smoking Status: Never Smoker Alcohol Use: None Drug Use: None General Adult EDM: Chief Complaint: FACE PROBLEM HPI: HPI: Patient is a 59-year-old male who was seen at the dental clinic and started on penicillin for dental infection. He feels like his face is still a little swollen. He denies any fever he denies any trismus or difficulty swallowing. [] Review of Systems: Review of Systems: Constitutional: Denies fever or chills. [] Eyes: Denies change in visual acuity. [] HENT: Denies nasal congestion or sore throat. [] Respiratory: Denies cough or shortness of breath. [] Cardiovascular: Denies chest pain or edema. [] GI: Denies abdominal pain, nausea, vomiting, bloody stools or diarrhea. [] : Denies dysuria. [] Musculoskeletal: Denies back pain or joint pain. [] Integument: Denies rash. [] Neurologic: Denies headache, focal weakness or sensory changes. [] Endocrine: Denies polyuria or polydipsia. [] Lymphatic: Denies swollen glands. [] Psychiatric: Denies depression or anxiety. [] Heart Score: Risk Factors: Risk Factors: DM, Current or recent (<one month) smoker, HTN, HLP, family history of CAD, obesity. Risk Scores: Score 0 - 3: 2.5% MACE over next 6 weeks - Discharge Home Score 4 - 6: 20.3% MACE over next 6 weeks - Admit for Clinical Observation Score 7 - 10: 72.7% MACE over next 6 weeks - Early Invasive Strategies Allergies: Allergies: Allergies Coded Allergies Type Severity Reaction Last Updated Verified aspirin Adverse Reaction Mild raises blood pressure. 2/5/20 Yes Physical Exam: PE: Constitutional: Well developed, well nourished, mild distress, non-toxic appearance. [] HENT: He has some gingival erythema no abscess in the right lower gumline [] Eyes: PERRLA, EOMI, conjunctiva normal, no discharge. [] Neck: Normal range of motion, no tenderness, supple, no stridor. [] Cardiovascular:Heart rate regular rhythm, no murmur [] Lungs & Thorax: Bilateral breath sounds clear to auscultation [] Abdomen: Bowel sounds normal, soft, no tenderness, no masses, no pulsatile masses. [] Skin: Warm, dry, no erythema, no rash. [] Back: No tenderness, no CVA tenderness. [] Extremities: No tenderness, no cyanosis, no clubbing, ROM intact, no edema. [] Neurologic: Alert and oriented X 3, normal motor function, normal sensory function, no focal deficits noted. [] Psychologic: Anxious. [] Current Patient Data: Vital Signs: Vital Signs Date Time Temp Pulse Resp B/P (MAP) Pulse Ox O2 Delivery O2 Flow Rate FiO2 04/18/20 00:53 98.6 76 16 158/87 (110) 96 Room Air 98.6 EKG: EKG: [] Radiology/Procedures: Radiology/Procedures: [] Course & Med Decision Making: Course & Med Decision Making Pertinent Labs and Imaging studies reviewed. (See chart for details) [] Dragon Disclaimer: Dragon Disclaimer: This electronic medical record was generated, in whole or in part, using a voice recognition dictation system. Departure Departure Impression: Primary Impression: Dental infection Disposition: HOME, SELF-CARE Condition: STABLE Referrals: Raman COOPER MD (PCP) Patient Instructions: Dental Caries Additional Instructions: Continue your antibiotics as prescribed as this will be the most important part of your medical regimen. Scripts Naproxen (NAPROXEN) 500 Mg Tablet 1 TAB PO BID PRN for PAIN, #30 TAB 1 Refill Prov: DARVIN ABEL DO 04/18/20 DARVIN ABEL DO April 18, 2020 01:03
== END 2020-04-18 01:11 | disposition home or self-care (01) ==
LOC: ER 00:39
DX: K04.7 Periapical abscess without sinus (principal); K21.9 Gastro-esophageal reflux disease without esophagitis; I10 Essential (primary) hypertension; Z88.6 Allergy status to analgesic agent
CPT/HCPCS: 96372; 99283; J1885

== ENCOUNTER 2021-05-01 10:31 | Emergency (ER) | payer BC ==
[~2021-05-01] VITALS: Ht 170.2 cm; Wt 63.6 kg
[~2021-05-01 10:31] MED LIST changes: +AMLO-187 PO; -AMLO10TA8 PO; +NAPR-514 PO
[2021-05-01 10:54] VITALS: BP 131/84
[2021-05-01] MEDS ORDERED: TETRACAINE 0.5% OPHTH SOLUTION 4ML BOTTLE. OS ONE (12:00)
[2021-05-01] MEDS ORDERED: FLUORESCEIN OPHTH TEST STRIP. OS ONE (12:00)
[2021-05-01] MEDS ORDERED: ERYTHROMYCIN 0.5% OPHTH OINTMENT 1GM TUBE. OS ONE (12:00)
[2021-05-01] MEDS ORDERED: ERYT1OIN6 OP (12:18)
--- NOTE | 2021-05-01 12:18 | PHYS DOC ---
Past Medical History Past Medical History: GERD, Hypertension Additional Past Medical Histor: POOR CIRCULATION Past Surgical History: No Surgical History Smoking Status: Never Smoker Alcohol Use: None Drug Use: None General Adult EDM: Chief Complaint: EYE PROBLEMS HPI: HPI: Patient is a 60 year old [f__sex] who presents with [] Review of Systems: Review of Systems: Constitutional: Denies fever or chills. [] Eyes: Denies change in visual acuity. [] HENT: Denies nasal congestion or sore throat. [] Respiratory: Denies cough or shortness of breath. [] Cardiovascular: Denies chest pain or edema. [] GI: Denies abdominal pain, nausea, vomiting, bloody stools or diarrhea. [] : Denies dysuria. [] Musculoskeletal: Denies back pain or joint pain. [] Integument: Denies rash. [] Neurologic: Denies headache, focal weakness or sensory changes. [] Endocrine: Denies polyuria or polydipsia. [] Lymphatic: Denies swollen glands. [] Psychiatric: Denies depression or anxiety. [] Heart Score: Risk Factors: Risk Factors: DM, Current or recent (<one month) smoker, HTN, HLP, family history of CAD, obesity. Risk Scores: Score 0 - 3: 2.5% MACE over next 6 weeks - Discharge Home Score 4 - 6: 20.3% MACE over next 6 weeks - Admit for Clinical Observation Score 7 - 10: 72.7% MACE over next 6 weeks - Early Invasive Strategies Current Medications: Current Medications Medications (Trade) Dose Ordered Sig/Dayne Start Time Stop Time Status Last Admin Dose Admin Erythromycin (Romycin) 0.25 inch 1X ONCE 05/01/21 12:00 05/01/21 12:01 DC 05/01/21 11:51 0.25 INCH Fluorescein Sodium (Ful-Sharon) 1 strip 1X ONCE 05/01/21 12:00 05/01/21 12:01 DC 05/01/21 11:50 1 STRIP Tetracaine HCl (Tetracaine) 2 drop 1X ONCE 05/01/21 12:00 05/01/21 12:01 DC 05/01/21 11:51 2 DROP Allergies: Allergies: Allergies Coded Allergies Type Severity Reaction Last Updated Verified aspirin Adverse Reaction Mild raises blood pressure. 12/27/19 Yes Physical Exam: PE: Constitutional: Well developed, well nourished, no acute distress, non-toxic todd earance. [] HENT: Normocephalic, atraumatic, bilateral external ears normal, oropharynx moist, no oral exudates, nose normal. [] Eyes: PERRLA, EOMI, conjunctiva normal, no discharge. [] Neck: Normal range of motion, no tenderness, supple, no stridor. [] Cardiovascular:Heart rate regular rhythm, no murmur [] Lungs & Thorax: Bilateral breath sounds clear to auscultation [] Abdomen: Bowel sounds normal, soft, no tenderness, no masses, no pulsatile masses. [] Skin: Warm, dry, no erythema, no rash. [] Back: No tenderness, no CVA tenderness. [] Extremities: No tenderness, no cyanosis, no clubbing, ROM intact, no edema. [] Neurologic: Alert and oriented X 3, normal motor function, normal sensory function, no focal deficits noted. [] Psychologic: Affect normal, judgement normal, mood normal. [] Current Patient Data: Vital Signs: Vital Signs Date Time Temp Pulse Resp B/P (MAP) Pulse Ox O2 Delivery O2 Flow Rate FiO2 05/01/21 10:54 98.3 59 18 131/84 (100) 100 Room Air 98.3 EKG: EKG: [] Radiology/Procedures: Radiology/Procedures: [] Course & Med Decision Making: Course & Med Decision Making Pertinent Labs and Imaging studies reviewed. (See chart for details) [] Dragon Disclaimer: Dragon Disclaimer: This electronic medical record was generated, in whole or in part, using a voice recognition dictation system. Departure Departure Impression: Primary Impression: Acute conjunctivitis of left eye Qualified Codes: H10.32 - Unspecified acute conjunctivitis, left eye Disposition: HOME / SELF CARE / HOMELESS Condition: STABLE Referrals: Raman COOPER MD (PCP) Patient Instructions: Conjunctivitis (Viral and Bacterial) Additional Instructions: Please follow with your architecture manager for further evaluation and treatment. Scripts Erythromycin Base (Erythromycin) 1 Gm Oint...g. 0.25 INCH OP QID for 5 Days, #1 MISC Prov: RADHA DARBY DO 05/01/21 RADHA DARBY DO May 01, 2021 12:18
== END 2021-05-01 12:25 | disposition home or self-care (01) ==
LOC: ER 10:31
DX: H10.32 Unspecified acute conjunctivitis, left eye (principal); K21.9 Gastro-esophageal reflux disease without esophagitis; I10 Essential (primary) hypertension; Z88.6 Allergy status to analgesic agent
CPT/HCPCS: 99283; 99284

== ENCOUNTER 2021-10-06 01:18 | Emergency (ER) | payer BC ==
[~2021-10-06] VITALS: Ht 170.2 cm; Wt 63.6 kg
[~2021-10-06 01:18] MED LIST changes: +CYCL10TA19 PO; -CYCL10TA2 PO; +ERYT1OIN6 OP
--- NOTE | 2021-10-06 01:38 | PHYS DOC ---
Past Medical History Past Medical History: GERD, Hypertension Additional Past Medical Histor: POOR CIRCULATION Past Surgical History: No Surgical History Smoking Status: Never Smoker Alcohol Use: None Drug Use: None General Adult HPI: HPI: Patient is a 60 year old male with history of HTN who presents with a year of intermittent chest burning sensation. Sometimes also includes his back. It is not exertional or pleuritic. He has had an EGD and colonoscopy, that he states was normal. He is not been able to find a cause for his chest burning. States that he was supposed to be referred to a green marketer, but has not yet had an appointment. Denies any change in symptoms, and is currently symptom-free. States he came in tonight because he was "tired of it", but that it is not any worse than usual. No leg swelling, recent surgeries, immobilizations, trauma. No history of DVT/PE. Not on blood thinners. Not a smoker. Denies history of HLD, DM. Review of Systems: Review of Systems: Constitutional: Denies fever or chills. [] Eyes: Denies change in visual acuity. [] HENT: Denies nasal congestion or sore throat. [] Respiratory: Denies cough or shortness of breath. [] Cardiovascular: Reports chest burning GI: Denies abdominal pain, nausea, vomiting, bloody stools or diarrhea. [] : Denies dysuria. [] Musculoskeletal: Denies back pain or joint pain. [] Integument: Denies rash. [] Neurologic: Denies headache, focal weakness or sensory changes. [] Endocrine: Denies polyuria or polydipsia. [] Lymphatic: Denies swollen glands. [] Psychiatric: Denies depression or anxiety. [] Heart Score: C/O Chest Pain: Yes HEART Score for Chest Pain: HEART Score for Chest Pain Response (Comments) Value History Slighlty/Non-Suspicious 0 ECG Nonspecific Repolarizatio 1 Age >45 - < 65 1 Risk Factors 1 or 2 Risk Factors 1 Total 3 Risk Factors: Risk Factors: HTN Risk Scores: Score 0 - 3: 2.5% MACE over next 6 weeks - Discharge Home Allergies: Allergies: Allergies Coded Allergies Type Severity Reaction Last Updated Verified aspirin Adverse Reaction Mild raises blood pressure. 2/20 Yes Physical Exam: PE: Constitutional: Well developed, well nourished, no acute distress, non-toxic appearance. [] HENT: Normocephalic, atraumatic, bilateral external ears normal, oropharynx moist, no oral exudates, nose normal. [] Eyes: PERRLA, EOMI, conjunctiva normal, no discharge. [] Neck: Normal range of motion, no tenderness, supple, no stridor. [] Cardiovascular:Heart rate regular rhythm, no murmur [] Lungs & Thorax: Bilateral breath sounds clear to auscultation [] Abdomen: Bowel sounds normal, soft, no tenderness, no masses, no pulsatile masses. [] Skin: Warm, dry, dry skin of the lower extremities. Back: No tenderness, no CVA tenderness. [] Extremities: No tenderness, no cyanosis, no clubbing, ROM intact, no edema. 2+ radial and DP pulses bilaterally. [] Neurologic: Alert and oriented X 3, normal motor function, normal sensory function, no focal deficits noted. [] Psychologic: Affect normal, judgement normal, mood normal. [] EKG: EKG: Sinus rhythm. Rate 84. No ST elevation or depression. No Q waves. T wave inversion is present in lead aVR. As compared to previous on 01/22/2020, T wave inversion is new. [] Radiology/Procedures: Radiology/Procedures: [] Course & Med Decision Making: Course & Med Decision Making Pertinent Labs and Imaging studies reviewed. (See chart for details) Patient is 60-year-old male with history of HTN who presents with a year of intermittent chest burning sensation. On arrival is afebrile, hemodynamically stable. EKG with nonspecific T wave inversion, but no ST elevation or depression. HEART score is 3. If troponin is negative, feel he could be safe for continued outpatient work up. Will obtain CXR to exclude pulmonary process although low suspicion for pneumonia, pneumothorax, pleural effusion etc. No signs/sx of PE. Will not pursue PE work up. Symptoms intermittent for a year, not aortic dissection. 0137 Labs and CXR reassuring. Troponin negative. 0222 Dragon Disclaimer: Prateek Disclaimer: This electronic medical record was generated, in whole or in part, using a voice recognition dictation system. Departure Departure Impression: Primary Impression: Atypical chest pain Disposition: HOME / SELF CARE / HOMELESS Condition: STABLE Referrals: Raman COOPER MD (PCP) Please schedule appointment with your primary care doctor this upcoming week. Additional Instructions: Your work-up including a chest x-ray, EKG, and labs including a test called a troponin which looks for heart strain were reassuring. Please follow-up with your primary care doctor this week to discuss ongoing evaluation of your chest discomfort. If you develop shortness of breath, fever/chills, severe worsening of your pain, or other new/concerning symptoms return to the emergency department for ree valuation at any time. DEDRICK CHOUDHARY MD Oct 06, 2021 01:38
[2021-10-06 01:55] LABS: BASO # 0.1 x10^3/uL (0.0-0.2); BASO % 1 % (0-3); EOS # 0.1 x10^3/uL (0.0-0.7); EOS % 2 % (0-3); HEMATOCRIT 38.6 % (39.0-53.0); LYMPH # 1.8 x10^3/uL (1.0-4.8); LYMPH % 26 % (24-48); MEAN CORPUSCULAR HEMOGLOBIN 30 pg (25-35); MEAN CORPUSCULAR HGB CONC 34 g/dL (31-37); MEAN CORPUSCULAR VOLUME 90 fL (79-100); MONO # 0.8 x10^3/uL (0.0-1.1); MONO % 12 % (0-9); NEUT # 4.3 x10^3/uL (1.8-7.7); NEUT % 60 % (31-73); PLATELET COUNT 241 x10^3/uL (140-400); RED BLOOD COUNT 4.29 x10^6/uL (4.30-5.70); RED CELL DISTRIBUTION WIDTH 13.3 % (11.5-14.5); WHITE BLOOD COUNT 7.1 x10^3/uL (4.0-11.0)
[2021-10-06 02:05] LABS: CALCIUM 8.8 mg/dL (8.5-10.1); GFR 91.6; POTASSIUM 3.5 mmol/L (3.5-5.1)
[2021-10-06 02:10] LABS: ALBUMIN 3.8 g/dL (3.4-5.0); TOTAL BILIRUBIN 0.3 mg/dL (0.2-1.0); TOTAL PROTEIN 7.5 g/dL (6.4-8.2)
[2021-10-06 02:58] VITALS: BP 139/81
--- NOTE | 2021-10-06 03:08 | RAD ---
XR CHEST 1V Clinical History: Reason: chest pain / Spl. Instructions: / History: Technique: AP view of the chest was obtained at 10/06/2021 1:34 AM. Comparison: January 22, 2020. Findings: The cardiomediastinal silhouette is normal. The pulmonary vasculature is normal. The lungs and pleura l margins are clear. Impression: No evidence of an acute cardiopulmonary process. Electronically signed by: Moustapha Kaye III, MD (10/06/2021 3:05 AM) [facility]
--- NOTE | 2021-10-06 04:54 | EKG ---
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
== END 2021-10-06 03:10 | disposition home or self-care (01) ==
LOC: ER 01:18
DX: R07.89 Other chest pain (principal); K21.9 Gastro-esophageal reflux disease without esophagitis; I10 Essential (primary) hypertension; Z88.6 Allergy status to analgesic agent
CPT/HCPCS: 36415; 71045; 80053; 84484; 85025; 93005; 99285-25

== ENCOUNTER 2021-11-25 14:36 | Emergency (ER) | payer SELFPAY | END 2021-11-25 19:46 | disposition left against medical advice (07) | LOC: ER 14:36 | DX: R09.89 Other specified symptoms and signs involving the circulatory and respiratory systems (principal); Z53.21 Procedure and treatment not carried out due to patient leaving prior to being seen by health care provider ==

== ENCOUNTER 2021-11-27 23:44 | Emergency (ER) | payer SELFPAY ==
[~2021-11-27] VITALS: Ht 170.2 cm; Wt 63.6 kg
--- NOTE | 2021-11-28 03:31 | PHYS DOC ---
Past Medical History Past Medical History: GERD, Hypertension Additional Past Medical Histor: POOR CIRCULATION Past Surgical History: Other Additional Past Surgical Histo: SURGERY TO STRETCH HIS THROAT Smoking Status: Never Smoker Alcohol Use: None Drug Use: None General Adult EDM: Chief Complaint: FEVER HPI: HPI: 60-year-old male past medical history of hypertension and GERD, presents the ED with complaints of diffuse headache, "hot and cold" sensation, fever 100.5, cough with green mucous and vomiting and diarrhea "at the same time," for the past 3 days. Reports he had some pain when he vomited below his navel but also states he's had that pain for months and has been seen by GI doctor a year ago, s/p EGD and colonoscopy. States his navel pain usually hurts when he eats late at night and goes to bed. Has no active abdominal pain currently in the emergency department. Reports he has had his Covid vaccine and is pending his booster next month. Flu vaccine is up-to-date. PCP is Dr. Ryan Cooper. Pt states " I really just want to know if I have the flu." Review of Systems: Review of Systems: Constitutional: Denies confusion or diaphoresis Eyes: Denies change in visual acuity. [] HENT: Denies nasal congestion or sore throat. [] Respiratory: Denies hemoptysis or shortness of breath. [] Cardiovascular: Denies chest pain or edema. [] GI: Denies melena, hematochezia, hematemesis : Denies dysuria or hematuria Musculoskeletal: Denies back pain or joint pain. [] Integument: Denies rash or desquamation Neurologic: Denies focal weakness or sensory changes. [] Endocrine: Denies polyuria or polydipsia. [] Lymphatic: Denies swollen glands. [] Psychiatric: Denies depression or anxiety. [] Heart Score: C/O Chest Pain: No Risk Factors: Risk Factors: DM, Current or recent (<one month) smoker, HTN, HLP, family history of CAD, obesity. Risk Scores: Score 0 - 3: 2.5% MACE over next 6 weeks - Discharge Home Score 4 - 6: 20.3% MACE over next 6 weeks - Admit for Clinical Observation Score 7 - 10: 72.7% MACE over next 6 weeks - Early Invasive Strategies Allergies: Allergies: Allergies Coded Allergies Type Severity Reaction Last Updated Verified aspirin Adverse Reaction Mild raises blood pressure. 12/27/19 Yes Physical Exam: PE: Constitutional: Well developed, well nourished, no acute distress, non-toxic appearance. HENT: Normocephalic, atraumatic, moist mucous membranes Eyes: EOMI, conjunctiva normal, no discharge. Neck: Normal range of motion, supple, Cardiovascular: S1/2 present, regular rhythm Lungs & Thorax: Speaking in full sentences, bilateral equal chest rise, no tachypnea or increased work of breathing Abdomen: soft, no tenderness, Skin: Warm, dry, no erythema, no rash. [] Extremities: No tenderness, no cyanosis, Neurologic: Alert and oriented X 3, normal motor function, normal sensory function, no focal deficits noted. [] Psychologic: Affect normal, judgement normal, mood normal. [] Current Patient Data: Vital Signs: Vital Signs Date Time Temp Pulse Resp B/P (MAP) Pulse Ox O2 Delivery O2 Flow Rate FiO2 11/28/21 03:10 98.1 78 18 108/70 (83) 96 Room Air 98.1 EKG: EKG: [] Radiology/Procedures: Radiology/Procedures: [] Course & Med Decision Making: Course & Med Decision Making Pertinent Labs and Imaging studies reviewed. (See chart for details) COVID-19 CRITERIA: The patient was evaluated during the global COVID-19 pandemic, and that diagnosis was suspected/considered upon their initial presentation. Their evaluation, treatment and testing was consistent with current guidelines for patients who present with complaints or symptoms that may be related to COVID-19. Concern for upper respiratory infection, consistent with influenza-like illness in a well-appearing male. Patient hemodynamically stable, protecting his airway. Reports no active abdominal pain in the emergency department. Rapid covid and flu swabs negative although covid PCR was positive. Will discharge home with strict ED return precautions were given for chest pain, neurologic deficits or worsening shortness of breath. Encouraged urgent outpatient follow- up with PMD for routine care and repeat follow-up. Life-threatening processes were considered but are low suspicion at this time, given history, physical exam and ED workup. Pt was educated on all prescription medications and adverse effects. All patient's questions were answered and pt was stable at time of discharge. Life/limb-threatening differential includes but is not limited to, airway emergency or respiratory distress/ARDS or fatigue or head or neck swelling, toxidrome, sepsis/shock, angioedema, anaphylaxis, congestive heart failure, myocarditis, acute myocardial infarction, dysrhythmias, cardiomyopathy, venous thromboembolism, pulmonary emboli, acute necrotizing hemorrhagic encephalopathy ,cerebral venous thrombosis, meningitis, encephalitis or CVA. I have spoken with the patient and/or caregivers. I explained the patient's condition, diagnoses and treatment plan based on the information available to me at this time. I have answered the patient and/or caregiver's questions and addressed any concerns. The patient and/or caregivers have a good understanding of patient's diagnosis, condition and treatment plan as can be expected at this point. Vital signs have been stable. Patient's condition is stable and appropriate for discharge from the emergency department. Patient will pursue further outpatient evaluation with primary care physician or other designated or consulting physician as outlined in the discharge instructions. The patient and/or caregivers are agreeable to this plan of care and follow-up instructions have been explained in detail. The patient and/or caregivers have received these instructions in written form and have expressed an understanding of the discharge instructions. The patient and/or caregivers are aware that any significant change of condition or worsening of symptoms should prompt immediate return to this or the closest emergency department or call to 911. Entrisphere Disclaimer: Entrisphere Disclaimer: This electronic medical record was generated, in whole or in part, using a voice recognition dictation system. Departure Departure Impression: Primary Impression: URI (upper respiratory infection) Additional Impression: Person under investigation for COVID-19 Disposition: HOME / SELF CARE / HOMELESS Condition: STABLE Referrals: Raman COOPER MD (PCP) Follow-up with your primary care physician in 24 to 48 hours OR FOLLOW UP WITH FAMILY MEDICINE: [address] [place] [address] Patient Instructions: Upper Respiratory Infection, Adult Additional Instructions: Return to ED immediately if your oxygen level drops below 90% (purchase a pulse oximetry at a medical supply store), difficulties breathing including rapid breathing or increased work of breathing (skin sucking under ribs), chest pain or stroke-like symptoms (facial droop, speech changes, arm/leg weakness). EMERGENCY DEPARTMENT GENERAL DISCHARGE INSTRUCTIONS Thank you for coming to [facility] Emergency Department (ED) today and trusting us with you care. We trust that you had a positive experience in our Emergency Department. If you wish to speak to the department management, you may call the Director at [phone]. YOUR FOLLOW UP INSTRUCTIONS ARE FOLLOWS: 1. Do you have a private Doctor? If you do not have a private doctor, please ask for a resource list of physicians or clinics that may be able to assist you with follow up care. 2. The Emergency Physicain has interpreted your x-rays. The X-Ray specialist will also review them. If there is a change in the findings, you will be notified in 48 hours when at all possible. 3. A lab test or culture has been done, your results will be reviewed and you will be notified if you need a change in treatment. ADDITIONAL INSTRUCTIONS AND INFORMATION: 1. Your care today has been supervised by a physician who is specially trained in emergency care. Many problems require more than one evaluation for a complete diagnosis and treatment. We recommend that you schedule your follow up appointment as recommended to ensure complete treatment of you illness or injury. If you are unable to obtain follow up care and continue to have a problem, or if your condition worsens, we recommend that you return to the ED. 2. We are not able to safely determine your condition over the phone nor are we able to give sound medical advice over the phone. For these safety reasons, if you call for medical advice we will ask you to come to the ED for further evaluation. 3. If you have any questions regarding these discharge instructions please call the ED at [phone]. SAFETY INFORMATION: In the interest of safety, wellness, and injury prevention; we encourage you to wear your sealbelt, if you smoke; quite smoking, and we encourage family to use a protective helmet for bicycling and other sporting events that present an increased risk for head injury. IF YOUR SYMPTOMS WORSEN OR NEW SYMPTOMS DEVELOP, OR YOU HAVE CONCERNS ABOUT YOUR CONDITION; OR IF YOUR CONDITION WORSENS WHILE YOU ARE WAITING FOR YOUR FOLLOW UP APPOINTMENT; EITHER CONTACT YOUR PRIMARY CARE DOCTOR, THE PHYSICIAN WHOSE NAME AND NUMBER YOU WERE GIVEN, OR RETURN TO THE ED IMMEDIATELY. JACKSON DOW DO Nov 28, 2021 03:31
[2021-11-28 06:25] VITALS: BP 130/79
[2021-11-28 06:50] LABS: INFLUENZA A PATIENT NEGATIVE (NEGATIVE)
[2021-11-28 06:51] LABS: INFLUENZA B PATIENT NEGATIVE (NEGATIVE)
--- NOTE | 2021-11-29 14:47 | NUR ---
IP: Pt currently in ED. Notified account support associate to let Charge nurse know of positive COVID test. She verbalized understanding.
== END 2021-11-28 06:27 | disposition home or self-care (01) ==
LOC: ER 23:44
DX: U07.1 COVID-19 (principal); J06.9 Acute upper respiratory infection, unspecified; K21.9 Gastro-esophageal reflux disease without esophagitis; I10 Essential (primary) hypertension; Z88.6 Allergy status to analgesic agent
CPT/HCPCS: 87426; 87804; 99283; U0003; U0005

== ENCOUNTER 2021-11-29 13:50 | Emergency (ER) | payer SELFPAY ==
[~2021-11-29] VITALS: Ht 170.2 cm; Wt 63.6 kg
[2021-11-29] MEDS ORDERED: ACETAMINOPHEN 500 MG TABLET PO ONE (16:45)
[2021-11-29] MEDS ORDERED: DEXAMETHASONE 4 MG TABLET PO ONE (16:45)
[2021-11-29] MEDS ORDERED: OXYMETAZOLINE 0.05% NASAL SPRAY 30ML BOTTLE. NS ONE (16:45)
--- NOTE | 2021-11-29 16:45 | PHYS DOC ---
Past Medical History Past Medical History: GERD, Hypertension Additional Past Medical Histor: POOR CIRCULATION Past Surgical History: Other Additional Past Surgical Histo: SURGERY TO STRETCH HIS THROAT Smoking Status: Never Smoker Alcohol Use: None Drug Use: None General Adult EDM: Chief Complaint: NOSEBLEED HPI: HPI: Patient is a 60 year old male who presents with his nose today and had a nosebleed. Patient has sinus congestion with a headache, cough. He was here 2 days ago and was tested for Covid and his rapid Covid was negative. However when I looked as of yesterday the send out Covid PCR is positive. Patient denies chest pain, wheezing, syncope, abdominal pain, nausea, vomiting, diarrhea, focal weakness, numbness tingling, vision change. Patient has a histo ry of hypertension, GERD, esophageal stricture. Review of Systems: Review of Systems: Constitutional: Denies fever or chills. [] Eyes: Denies change in visual acuity. [] HENT: + nasal congestion or denies sore throat. + Nosebleed [] Respiratory: +cough or denies shortness of breath. [] Cardiovascular: Denies chest pain or edema. [] GI: Denies abdominal pain, nausea, vomiting, bloody stools or diarrhea. [] : Denies dysuria. [] Musculoskeletal: Denies back pain or joint pain. [] Integument: Denies rash. [] Neurologic: + Sinus headache, denies focal weakness or sensory changes. [] Endocrine: Denies polyuria or polydipsia. [] Lymphatic: Denies swollen glands. [] Psychiatric: Denies depression or anxiety. [] Heart Score: C/O Chest Pain: No Current Medications: Current Medications Medications (Trade) Dose Ordered Sig/Dayne Start Time Stop Time Status Last Admin Dose Admin Dexamethasone (Decadron) 10 mg 1X ONCE 11/29/21 16:45 11/29/21 16:46 Oxymetazoline HCl (Afrin) 2 spray 1X ONCE 11/29/21 16:45 11/29/21 16:46 Allergies: Allergies: Allergies Coded Allergies Type Severity Reaction Last Updated Verified aspirin Adverse Reaction Mild raises blood pressure. 12/27/19 Yes Physical Exam: PE: Constitutional: Well developed, well nourished, no acute distress, non-toxic appearance. [] HENT: Normocephalic, atraumatic, bilateral external ears normal, oropharynx moist, no oral exudates, nose normal. Sinus congestion with pressure with palpation to frontal sinuses. [] Eyes: PERRLA, EOMI, conjunctiva normal, no discharge. [] Neck: Normal range of motion, no tenderness, supple, no stridor. [] Cardiovascular:Heart rate regular rhythm, no murmur [] Lungs & Thorax: Bilateral breath sounds clear to auscultation [] Abdomen: Bowel sounds normal, soft, no tenderness, no masses, no pulsatile masses. [] Skin: Warm, dry, no erythema, no rash. [] Back: No tenderness, no CVA tenderness. [] Extremities: No tenderness, no cyanosis, no clubbing, ROM intact, no edema. [] Neurologic: Alert and oriented X 3, normal motor function, normal sensory function, no focal deficits noted. [] Psychologic: Affect normal, judgement normal, mood normal. [] EKG: EKG: [] Radiology/Procedures: Radiology/Procedures: [] Impression: [facility] [address] [place] [address] IMAGING REPORT Signed PATIENT: EDER NAIK DACCOUNT: [id number] : 1960 LOCATION: ER AGE: 60 SEX: M EXAM STATUS: REG ER ORD. PHYSICIAN: KASIE WOODWARD APRN REASON: cough, covid + PROCEDURE: PORTABLE CHEST 1V EXAM: CHEST 1 VIEW History: Cough, Covid COMPARISON: 10/06/2021 TECHNIQUE: Single portable radiograph of the chest FINDINGS: The cardiac silhouette is unremarkable. Mild left lung base airspace opacity in the retrocardiac region likely atelectasis or infiltrates.. The costophrenic sulci are clear and well demarcated. IMPRESSION: Mild left lung base atelectasis or infiltrates. Electronically signed by: Romie Hitchcock MD (11/29/2021 4:59 PM) [id number] DICTATED and SIGNED BY: ROMIE HITCHCOCK MD DATE: 11/29/21 [id number] 0 Course & Med Decision Making: Course & Med Decision Making Pertinent Labs and Imaging studies reviewed. (See chart for details) COVID-19 CRITERIA: The patient was evaluated during the global COVID-19 pandemic, and that diagnosis was suspected/considered upon their initial presentation. Their evaluation, treatment and testing was consistent with current guidelines for patients who present with complaints or symptoms that may be related to COVID-19. See HPI. Alert and oriented x4. Ambulatory steady gait. Speaks in full clear sentences. Lungs are clear all auscultation in all lobes. Vital signs are within normal limits. Refill less than 2 seconds. Skin pink warm and dry. No respiratory distress. Afebrile. Patient is given a dose of dexamethasone and Afrin in bilateral nares x1 in the ED. Nose is not bleeding any longer. Patient states his primary care doctor gave him a prescription for Robitussin. [] Dragon Disclaimer: Dragon Disclaimer: This electronic medical record was generated, in whole or in part, using a voice recognition dictation system. COVID-19 Patient Risks: Age 65 or older: No Sign of co-morbidity: Yes Exp to person + for COVID: Yes Exp to PUI: No Travel from affected area: No Lower respiratory symptoms: Yes Fever: No Other: Yes (cough) PPE Use: Full PPE with N95 mask or PAPR: Yes Departure Departure Impression: Primary Impression: COVID-19 Additional Impression: Bleeding nose Disposition: 01 HOME / SELF CARE / HOMELESS Condition: STABLE Referrals: Raman COOPER MD (PCP) Patient Instructions: Cough, Adult, Fever, Adult, Nose Drops, Saline, [id number], Nosebleed, Sinus Headache Additional Instructions: Continue to quarantine as you are Covid positive. If you blow your nose lightly blow your nose. Use saline nasal spray or Flonase nasal spray in the nose to help clear your sinuses. Continue taking Robitussin. Take an antihistamine to help with nasal congestion. Drink plenty of fluids to stay hydrated. Reasons to return to the emergency room would be severe shortness of breath, severe chest pain or you cannot keep down fluids. You have been tested for or diagnosed with COVID-19. It is an infection caused by a new type of coronavirus. COVID-19 will cause cold-like or mild flu symptoms in most. It can cause more severe symptoms like problems breathing in some. There is no treatment for COVID-19. The body will clear the infection over time. Self-care will help to ease discomfort. Steps to Take: Self-Care Rest as needed. Healthy habits may help you feel better. Steps include: Choose healthy foods including fruits and vegetables. Drink water throughout the day. Get plenty of sleep each night. If you smoke, try to quit. It may ease breathing. Avoid alcohol. Keep Others Healthy The virus can spread to others. Droplets are released every time you sneeze or cough. The droplets can get into the mouth, nose, or eyes of people near you and lead to infection. To lower the chances of spreading COVID-19 to others: Stay at home until your doctor has said it is safe to leave. If you tested pos itive this will mean staying isolated until both of the following are true: At least 7 days have passed since the start of illness. You are free of fever for at least 72 hours without the use of medicine. During this time: - Avoid public areas, events, or transportation. Do not return to work or school until your doctor has said it is safe to do so. - Call ahead if you need to go to a medical center. Let them know you may have COVID-19. It will help them guide you where to go. They may also ask you to wear a facemask when you come to the office. - If you call for emergency medical services, let them know you may have COVID- 19. While at home: - Try to avoid close contact with others. Stay about 6 feet away. - If possible, spend most of your time in a separate room from others. - Use a face mask if you will be in close contact with others such as sharing a room or vehicle. - Have someone wipe down common surfaces in the home. Use household physical security manager every day on areas like doorknobs, counters, or sinks. - Cough or sneeze into a tissue. Throw the tissue away right after use. If a tissue is not available, cough or sneeze into your elbow. - Wash your hands often. Wash them after sneezing or coughing. Use soap and water and wash for at least 20 seconds. Alcohol based hand negative cleaner can be used if soap and water is not available. - Do not prepare food for others. Avoid sharing personal items like forks, spoons, or toothbrushes. - Avoid close contact with pets while you are sick. There is no evidence of the virus passing to pets. This is a safety step until more is known about this virus. Isolation can be frustrating. Social interaction can help. Keep in touch with friends and family through phone and tech options. You can still interact with others in your home, just keep a safe distance of about 6 feet. Follow-up: Your doctors office will check in with you to see if there are any changes in your health. You may be asked to keep track of symptoms to share with them. They will also let you know when you are clear to be in public again. Problems to Look Out For: Contact your doctor if your recovery is not going as you expect. Get emergency care if you have problems such as: - Trouble breathing - Nonstop chest pain or pressure - Changes in awareness, confusion, or problems waking - Lips or face have bluish color - Worsening of symptoms If you think you have an emergency, call for emergency medical services right away. As taken [place] [facility] [place] KASIE Patel APRN Nov 29, 2021 16:45
--- NOTE | 2021-11-29 17:02 | RAD ---
EXAM: CHEST 1 VIEW History: Cough, Covid COMPARISON: 10/06/2021 TECHNIQUE: Single portable radiograph of the chest FINDINGS: The cardiac silhouette is unremarkable. Mild left lung base airspace opacity in the retroc ardiac region likely atelectasis or infiltrates.. The costophrenic sulci are clear and well demarcate d. IMPRESSION: Mild left lung base atelectasis or infiltrates. Electronically signed by: Romie Hitchcock MD (11/29/2021 4:59 PM) [id number]
[2021-11-29 17:57] VITALS: BP 151/81
== END 2021-11-29 18:01 | disposition home or self-care (01) ==
LOC: ER 13:50
DX: U07.1 COVID-19 (principal); R04.0 Epistaxis; K21.9 Gastro-esophageal reflux disease without esophagitis; I10 Essential (primary) hypertension; Z88.6 Allergy status to analgesic agent
CPT/HCPCS: 71045; 99284